=== PATIENT | male | born 1960 | race Caucasian/White ===

== ENCOUNTER → 2019-10-07 13:13 | Outpatient (BNVA) | payer OTHER, SELFPAY | PROVIDERS: Family Provider Family Medicine; PCP Family Medicine; Visit Provider Nurse Practitioner Family | DX: R39.9 Unspecified symptoms and signs involving the genitourinary system (principal); N40.1 Benign prostatic hyperplasia with lower urinary tract symptoms; N13.8 Other obstructive and reflux uropathy; R97.20 Elevated prostate specific antigen [PSA]; C67.2 Malignant neoplasm of lateral wall of bladder | CPT/HCPCS: 81001 ==

== ENCOUNTER → 2019-12-04 10:15 | Outpatient (BNVA) | payer OTHER, SELFPAY | PROVIDERS: Family Provider Family Medicine; PCP Family Medicine; Visit Provider Urology | DX: R97.20 Elevated prostate specific antigen [PSA] (principal); C67.2 Malignant neoplasm of lateral wall of bladder; N40.1 Benign prostatic hyperplasia with lower urinary tract symptoms; N13.8 Other obstructive and reflux uropathy; R35.8 Other polyuria | CPT/HCPCS: 81001 ==

== ENCOUNTER → 2019-12-31 14:27 | Outpatient (BNVA) | payer OTHER, SELFPAY | PROVIDERS: Family Provider Family Medicine; PCP Family Medicine; Referring Provider Registered Nurse; Visit Provider Orthopaedic Surgery | DX: M54.12 Radiculopathy, cervical region (principal) | CPT/HCPCS: 72040 ==

== ENCOUNTER 2020-01-06 15:41 | Emergency (ER) | payer OTHER, SELFPAY ==
[2020-01-06 15:57] VITALS: BP 122/75; PULSE 76; RESP 16; TEMP 36.8; O2SAT 96; BMI 30.2
--- NOTE | 2020-01-06 16:19 | W.ED.EXTPRO ---
HPI - Extremity Problem General: Chief complaint: Extremity Injury, Upper Stated complaint: shoulder pain Time Seen by Provider: 01/06/20 16:19 History of Present Illness: HPI Narrative: Patient is a 59-year-old male who comes to the ED with left shoulder pain. Patient is already being followed by Dr. Garay and he has a scheduled MRI of his cervical spine this coming . Patient is here because he cannot take the pain. Patient has tramadol prescription and he says that it helps a little bit. MD Complaint: joint pain (left shoulder) Onset (ago): month(s) (started about 6 months ago) Pain Consistency: constant Location: upper extremity (left shoulder) Severity scale (1-10): 8 Quality: aching Radiation: none Relieving factors: other (tramadol helps) Exacerbating factors: nothing Associated symptoms: Deny chest pain, fever(s) or rash Review of Systems Const: Denies: fever(s), chills or fatigue Eyes: Denies: change in vision or eye discomfort ENMT: Denies: throat pain, odynophagia, nasal discharge or nasal congestion Card: Denies: chest pain, palpitations, edema, swelling of feet/ankles, dyspnea on exertion or orthopnea Resp: Denies: dyspnea, productive cough or non-productive cough GI: Denies: abdominal pain, nausea, vomiting, diarrhea, constipation or hematochezia : Denies: flank pain, difficulty urinating, dysuria or hematuria Musc: Reports: joint pain (left shoulder); Denies: neck pain, back pain or extremity swelling Skin/Breast: Denies: rash or new lesions Neuro: Denies: headache(s), numbness in extremities or weakness in extremities PFSH ED PFSH: Medical History BPH w urinary obs/LUTS Elevated PSA Malignant neoplasm of lateral wall of bladder Polyuria Surgical History History of bladder surgery bladder biopsy History of carpal tunnel surgery of right wrist Status post tendon repair bicep tendon reattached rt arm Family History Father , at age 82 Cardiac arrest CHF (congestive heart failure) Mother , at age 73 Dementia Social History Smoking and tobacco status: never smoked Alcohol intake: never Adopted: No Caregiver/support person: No Lives independently: No Household members: spouse Marital status: Current occupational status: employed History of recent travel: No Current gender identity: Male Physical Exam Const: COMMON NORMALS: no acute distress, patient oriented x3 and alert GENERAL APPEARANCE: cooperative and comfortable HENMT: COMMON NORMALS: normocephalic HEAD & SCALP: normocephalic MOUTH: Normal oral and palatal mucosa present THROAT: posterior oropharynx normal and uvula midline Eye: COMMON NORMALS: Equal, round and reactive pupils present PUPIL: Yes Equal, round and reactive pupils present Neck/C-Spine: COMMON NORMALS: supple GENERAL: Yes normal visual inspection Resp: COMMON NORMALS: normal respiratory effort, No retractions, No use of accessory muscles and clear to auscultation bilaterally AUSCULTATION: clear to auscultation bilaterally Cardio: COMMON NORMALS: regular rate, regular rhythm, S1 normal heart sound present, S2 normal heart sound present, No gallops present (Cardio), No clicks present (Cardio), No murmurs present (Cardio) and Peripheral pulses 2+ throughout RATE: regular rate RHYTHM: regular rhythm HEART SOUNDS: S1 normal heart sound present and S2 normal heart sound present PERIPHERAL PULSES: Peripheral pulses 2+ throughout GI: COMMON NORMALS: Normal to inspection, nondistended, normoactive bowel sounds present, Soft to palpation, non-tender and no masses PALPATION: Yes Soft to palpation : COMMON NORMALS: Yes no CVA tenderness BLADDER/KIDNEY EXAM: Yes no CVA tenderness Back/Pelvis: COMMON NORMALS: no CVA tenderness Extremity: GENERAL: Yes normal exam except as noted LEFT UPPER EXTREMITY: Yes shoulder joint Left shoulder joint: Yes palpation (tenderness on anterior) Neuro: COMMON NORMALS: patient oriented x3 and moves all extremities SENSORIUM/ORIENTATION: Yes alert Skin: GENERAL SKIN EXAM: dry skin Course Vital Signs: Vital signs: Vital Signs Temperature 97.8 F 01/06/20 16:42 Pulse Rate 72 01/06/20 16:42 Respiratory Rate 16 01/06/20 16:42 Blood Pressure 127/78 01/06/20 16:42 Pulse Oximetry 96 01/06/20 16:42 MDM - Extremity (Nontraumatic) MDM Narrative: Medical decision making narrative: Patient is a 59-year-old male comes to the ED with left shoulder pain. Patient is currently being followed by Dr. Garay and he has a scheduled MRI on for further evaluation of complaint. He comes to the ED with acute left shoulder pain. He was given hydrocodone tablet here in the ED and discharged and told to continue taking his previously prescribed tramadol to help with pain. Patient understood and agreed with plan. Discharge Plan Discharge Patient Disposition: Home, Self-Care Clinical Impression: Left shoulder pain Qualifiers: Chronicity: unspecified Qualified Code(s): M25.512 - Pain in left shoulder Condition: Stable Prescriptions: No Action baclofen 10 mg tablet 10 mg PO DAILY RF: 0 tramadol 50 mg tablet 50 mg PO Q6H PRNRF: 0 glimepiride 4 mg tablet 4 mg PO BID RF: 0 simvastatin 20 mg tablet 20 mg PO DAILY RF: 0 Glyxambi 25-5 mg tablet 1 tab PO QAM RF: 0 tamsulosin 0.4 mg capsule 0.4 mg PO DAILY Qty: 30 RF: 12 Discharge Orders: Discharge Order (Routine); Ordered 01/06/20 Ordered By: Jose L Solitario Referrals: Sandra Cleary DO [Primary Care Provider] - Discharge Diet: Regular Discharge Activity: Increase activity as tolerated Activity Restrictions/Additional Instructions: Contact your PCP and set up an appointment for reevaluation in 7 to 10 days. You can also discuss with your PCP about other pain management options. Continue taking your prescribed tramadol to help with pain. 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
[2020-01-06] MEDS: HYDROcodone-acetaminophen 7.5-325 mg Tablet 1 TAB PO (16:35)
[2020-01-06 16:42] VITALS: BP 127/78; PULSE 72; RESP 16; TEMP 36.6; O2SAT 96
== END 2020-01-06 16:43 | disposition home or self-care (01) ==
PROVIDERS: Emergency Provider Physician Assistant; PCP Family Medicine
DX: M25.512 Pain in left shoulder (principal); Z85.51 Personal history of malignant neoplasm of bladder
CPT/HCPCS: 12345; 99281; 99283

== ENCOUNTER 2020-01-09 10:47 | Outpatient (CLI) | payer OTHER, SELFPAY ==
--- NOTE | 2020-01-09 11:00 | MR_ITS ---
WS: [id number] MRI CERVICAL SPINE NONCONTRAST TECHNIQUE: Sagittal T1, T2 and STIR imaging. Axial T2, gradient, and fiesta imaging. CLINICAL INFORMATION: M25.519 Pain in unspecified shoulder COMPARISON: None. FINDINGS: Straightening of the normal cervical lordosis. Cord signal is normal. Mild disc bulging C3-C4 C4-C5 a nd C5-C6 with small central protrusions.. C2-C3: Mild right and no significant left foraminal narrowing. Spinal canal is patent. C3-C4: Mild disc bulging with a small central protrusion. Mild central canal stenosis with slight con tact of the cervical cord. Mild facet arthropathy. Mild left greater than right bony foraminal narrow ing. C4-C5: Small central disc protrusion. Slight contact of the cervical cord. Mild central canal stenosi s. Mild right greater than left bony foraminal narrowing. Mild facet arthropathy. C5-C6: Left pericentral disc protrusion with contact of the left ventral cervical cord. Mild/moderate central canal stenosis and slight indentation on cervical cord. Severe left and mild right bony fora raman narrowing. Mild facet arthropathy. C6-C7: Mild right and no significant left foraminal narrowing. Mild facet arthropathy. Spinal canal i s patent. C7-T1: No significant disc bulging. Spinal canal and foramen are patent. Visualized brain stem structures: Normal. Prevertebral soft tissues: Normal. MR/MR cervical spin wo con* [id number] IMPRESSION: 1. Straightening of the normal cervical lordosis. Small disc protrusions at C3 -C5. 2. Mild central canal stenosis C3-C4 and C4-C5 with small central disc protrus ions and slight indentation on cervical cord. 3. Left pericentral disc protrusion C5-C6 with mild to moderate central canal stenosis and slight indentation the left ventral cervical cord. Severe left for aminal narrowing impinges the exiting left C6 nerve root. 4. Mild to moderate right C6-C7 bony foraminal narrowing.
== END 2020-01-09 10:48 | disposition home or self-care (01) ==
LOC: RADSHAW 10:51
PROVIDERS: PCP Family Medicine; Visit Provider Orthopaedic Surgery
DX: M25.519 Pain in unspecified shoulder (principal); M48.02 Spinal stenosis, cervical region; M50.220 Other cervical disc displacement, mid-cervical region, unspecified level
CPT/HCPCS: 72141

== ENCOUNTER → 2020-06-03 08:16 | Outpatient (BNVA) | payer OTHER, SELFPAY | PROVIDERS: PCP Family Medicine; Visit Provider Urology | DX: C67.2 Malignant neoplasm of lateral wall of bladder (principal); R97.20 Elevated prostate specific antigen [PSA] | CPT/HCPCS: 81003; 84153 ==

== ENCOUNTER → 2020-12-16 09:21 | Outpatient (BNVA) | payer OTHER, SELFPAY | PROVIDERS: PCP Family Medicine; Visit Provider Urology | DX: R97.20 Elevated prostate specific antigen [PSA] (principal); C67.2 Malignant neoplasm of lateral wall of bladder; N40.1 Benign prostatic hyperplasia with lower urinary tract symptoms; N13.8 Other obstructive and reflux uropathy | CPT/HCPCS: 81003; 84153 ==

== ENCOUNTER → 2021-09-20 12:54 | Outpatient (BNVA) | payer OTHER, SELFPAY | PROVIDERS: PCP Family Medicine; Visit Provider Urology | DX: R97.20 Elevated prostate specific antigen [PSA] (principal); C67.2 Malignant neoplasm of lateral wall of bladder; N40.1 Benign prostatic hyperplasia with lower urinary tract symptoms; N13.8 Other obstructive and reflux uropathy | CPT/HCPCS: 81003; 84153 ==

== ENCOUNTER → 2022-05-31 12:55 | Outpatient (BNVA) | payer OTHER, SELFPAY | PROVIDERS: PCP Family Medicine; Visit Provider Student in an Organized Health Care Education/Training Program | DX: S83.241A Other tear of medial meniscus, current injury, right knee, initial encounter (principal); W10.9XXA Fall (on) (from) unspecified stairs and steps, initial encounter | CPT/HCPCS: 73560; 73565 ==

== ENCOUNTER → 2022-06-10 05:59 | Day surgery (SDC) | payer OTHER, SELFPAY ==
[2022-06-10] VITALS (7 sets, daily range): BP systolic 124–146; BP diastolic 65–80; PULSE 70–77; RESP 12–16; TEMP 36.2–36.3; O2SAT 94–100
[2022-06-10] MEDS: ketorolac 30 mg/mL INJ IVP (06:36)
[2022-06-10] MEDS: sodium chloride 0.9% 1,000 ML 30 ML IV (06:36)
[2022-06-10] MEDS: acetaminophen 1,000 MG/100 ML PIGGYBACK 400 MG IV (06:37)
--- NOTE | 2022-06-10 06:40 | W.PM.OPSUD ---
Surgery/Procedure H&P Update DATE OF PROCEDURE: June 10, 2022 DATE H&P PERFORMED: 05/31/22 CHANGES TO PREVIOUS DOCUMENTATION: None PREOP DIAGNOSIS: Right knee medial meniscus tear PRIMARY INDICATION FOR PROCEDURE: Right knee medial meniscus tear PLANNED PROCEDURE: Operation Date: 06/10/22 07:00 Proposed Procedures p RIGHT KNEE DIAGNOSTIC AND SURGICAL ARHTROSCOPY WITH MEDIAL MENESECTOMY [id number] S83.2491A,S89.90XA(Right) - DO molly Orozco Meniscectomy(Right) - Curry Solitario DO
[2022-06-10 06:44] LABS: Glucose Point of Care 143 mg/dL (70-110)
--- NOTE | 2022-06-10 06:53 | ANES.PREANE2 ---
Pre-Anesthetic Assessment Height/Weight: Height 1.75 m Weight 88.451 kg Temp Pulse Resp BP Pulse Ox O2 Del Method 97.1 F L 77 16 146/80 96 06/10/22 06:20 06/10/22 06:20 06/10/22 06:20 06/10/22 06:20 06/10/22 06:20 06/10/22 06:20 Preop Diagnosis: Right knee medial meniscus tear Operation Date: 06/10/22 07:00 Proposed Procedures p RIGHT KNEE DIAGNOSTIC AND SURGICAL ARHTROSCOPY WITH MEDIAL MENESECTOMY [id number] S83.2491A,S89.90XA(Right) - Curry Sumter, DO s Meniscectomy(Right) - Curry Solitario DO Familial anesthetic complications: None Was Beta Lalit taken within 24 hours: N/A Was Clonidine taken within 24 hours: N/A Last intake: Intake Last Liquid Date 06/09/22 Last Liquid Time 18:00 Last Solid Date 06/09/22 Last Solid Time 17:30 Social No alcohol and No tobacco Exam alert, oriented x 3, clear to auscultation bilaterally and regular rate & rhythm Airway Mallampati: Class II Dentition: other (missing) CV/HEM Hypertension Metabolic Diabetes Mellitus Anesthetic Plan ASA status: 3 Anesthesia: MAC and Regional (specify below) Risk of > 500 ml blood loss (7ml/kg in children): No Medications/Allergies Home Medications Medication Instructions Recorded Confirmed Last Taken Type glimepiride 4 mg tablet 4 mg PO BID 10/07/19 06/10/22 06/09/22 06:00 History simvastatin 20 mg tablet 20 mg PO DAILY 10/07/19 06/10/22 06/09/22 06:00 History multivit,Ca,min-iron 8 mg-folic See Rx Instructions .Route .COMPLEX 06/03/20 06/10/22 06/09/22 06:00 History acid 200 mcg-lycopene 600 mcg tablet (Centrum Men) omega-3 fatty acids 1,000 mg 1,000 mg PO DAILY 06/03/20 06/10/22 06/09/22 06:00 History capsule dapagliflozin 10 mg tablet 10 mg PO DAILY 12/16/20 06/10/22 06/09/22 06:00 History (Farxiga) tamsulosin 0.4 mg capsule See Rx Instructions .Route 10/05/21 06/10/22 06/09/22 06:00 Rx .COMPLEX #30 caps meloxicam 15 mg tablet 15 mg PO DAILY 05/31/22 06/10/22 06/09/22 06:00 History hydrocodone 5 mg-acetaminophen 325 1 tab PO Q6H PRN pain 7 days #28 06/10/22 Unknown Rx mg tablet tabs Allergies Allergy/AdvReac Type Severity Reaction Status Date / Time bee venom protein (honey bee) Allergy ALGY-Swell Verified 06/10/22 06:11 Lip/Tongue/Throat metformin AdvReac ADR-Diarrhe Verified 06/10/22 06:11 a Current Medications Generic Name Dose Route Start Last Admin Trade Name Freq PRN Reason Stop Dose Admin Sodium Chloride 1,000 mls @ 30 mls/hr 06/10/22 06:15 06/10/22 06:36 Sodium Chloride 0.9% IV 06/11/22 06:14 30 mls/hr .Q24H VICENTE Administration PFSH Anesthesia Medical History (Updated 06/04/22 @ 22:05 by Curry Solitario DO) Acute medial meniscus tear of right knee BPH w urinary obs/LUTS Elevated PSA Malignant neoplasm of lateral wall of bladder Polyuria Surgical History History of bladder surgery bladder biopsy History of carpal tunnel surgery of right wrist Status post tendon repair bicep tendon reattached rt arm Family History Father , at age 82 Cardiac arrest CHF (congestive heart failure) Mother , at age 73 Dementia Social History Smoking and tobacco status: never smoked Alcohol intake: never Adopted: No Caregiver/support person: No Lives independently: No Household members: spouse Marital status: Current occupational status: employed History of recent travel: No Current gender identity: Male Data Anesthesia Cardiac Studies: No Data to Display
[2022-06-10] MEDS: ceFAZolin 2,000 MG in sodium chloride 0.9% (plus) 50 ML 100 MG IV (06:59)
--- NOTE | 2022-06-10 07:00 | ANES.PROC ---
Anesthesia Procedures Procedure/Date: 06/10/22 Nerve Block ^: Nerve Block 1: Main Anesthesia: other (mac) Time Out Performed: Yes Consent: requested by attending/covering physician, from patient, risks and benefits reviewed and patient agrees to proceed Nerve block location: adductor canal (R) Anesthesia monitors applied: pulse oximetry, EKG, BP cuff and oxygen Nerve block position: semi sitting Anesthetic Used: ropivicaine 0.5% (30) and with decadron (4) Ultrasound used to: recognize landmarks and visualize and ID femerol nerve Nerve Stimulator Used?: No Interscalene/Femoral BLK: 4 stimuplex 21 g needle used for position and inplane approach, visualize local anesthetic spread and no vascular puncture identified Injection: neg aspiration of heme Patient Tolerated Procedure: well Complications: none Additional Comments: patient educated not to walk or put weight on leg for at least 24 hours or until block resolves.
--- NOTE | 2022-06-10 07:44 | P.OP_ITS ---
Brief Operative Note Date of procedure: 06/10/22 Pre-op diagnosis: Right knee medial meniscus tear Post-op diagnosis: same (Medial and patellofemoral chondromalacia, extensive synovitis) Procedure Done: Right knee diagnostic and surgical arthroscopy with partial medial meniscectomy, medial and patellofemoral chondroplasty, extensive synovectomy of medial lateral and patellofemoral compartments Surgeon: Curry Solitario Estimated blood loss (mL): 1 Complications: None Post-op Plan: Patient taken to PACU in stable condition recovering well. Dressing on in place clean dry and intact. Patient may be weightbearing as tolerated to the right lower extremity. Patient was given appropriate discharge instruction as well as pain medication and aspirin for DVT prophylaxis postoperatively. To follow-up in the office in 2 weeks. Encourage range of motion. 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
--- NOTE | 2022-06-10 07:46 | PM.PACU ---
PACU note Narrative: Patient taken to PACU in stable condition. Patient received a regional block. Dressing clean dry and intact. Patient able to wiggle toes. Distal pulses palpable toes warm well perfused. Compartment soft compressible. Exam: awake Disposition: discharged
--- NOTE | 2022-06-10 07:47 | PM.OP ---
Operative Report Date of procedure: June 10, 2022 Pre-op diagnosis: Preop Diagnosis Right knee medial meniscus tear Post-op diagnosis: Right knee medial meniscus tear Chondromalacia medial and patellofemoral compartments Extensive synovitis Procedure done: Right knee diagnostic and surgical arthroscopy partial medial meniscectomy Right knee diagnostic and surgical arthroscopy medial and patellofemoral compartment chondroplasties Right knee diagnostic and surgical arthroscopy with extensive synovectomy of medial, lateral and patellofemoral compartments Surgeon: Curry Solitario DO Estimated blood loss: 1 cc 16 minutes Complications: None Findings: See operative report narrative Condition: stable Disposition: same day Brief History: Patient is a 61-year-old gentleman history seen and worked up in the outpatient setting physical exam history as well as MRI consistent with right knee medial meniscus tear. He has failed conservative treatment and is failed to respond and continued to have mechanical symptoms. Talked about treatment options as far as nonoperative and operative intervention. Shared Decision making after detailing a risk benefits complication alternatives to surgical nonsurgical treatment options he agrees to proceed with surgical intervention at this time. All questions were answered at this time. Patient like to proceed with right knee diagnostic and surgical arthroscopy with partial medial meniscectomy. Procedure: Patient was seen evaluated in the preoperative holding area. Consent was reviewed with patient. Correct extremity was marked. Once seen evaluated by anesthesia he was then taken back to the operative suite transported on the OR table all bony prominences well-padded patient was appropriately secured to the bed. He underwent anesthesia per the anesthesia department. Nonsterile tourniquet applied to the right thigh. The right lower extremity was then prepped and draped in therapeutic fashion. Received appropriate preoperative antibiotics. Final timeout performed. Esmarch tourniquet was used exsanguinate the right lower extremity to 250 mmHg. Standard 2 portal arthroscopy utilizing vertical incisions were made to perform diagnostic and surgical arthroscopy. Several my inferior lateral portal and established my arthroscope in the patellofemoral pouch. No loose bodies noted extensive synovitis noted. I then subsequently moved into the patellofemoral space. Patient had extensive synovitis and a thickened medial plica. Looked in the medial gutter no loose bodies noted. I then entered the medial compartment and established my medial working portal utilizing a spinal needle outside in technique. I then made a incision established my medial portal and introduced arthroscopic shaver. Performed extensive synovectomy of the medial compartment. Visualized the medial compartment there was found on the femur to have grade1-2 as well as on the tibia grade 1 chondromalacia. Patient was found to have complex tear of the posterior horn the medial meniscus. I then introduced arthroscopic shaver as well as basket forceps to carry out a partial medial meniscectomy to stable meniscal tissue. I then probed the meniscal root which was stable and intact. Used a thermal wand to anneal the meniscal edges to complete my partial medial meniscectomy. I then utilized arthroscopic shaver to perform a medial compartment chondroplasty of the femur to stable articular tissue. Next I evaluated the intercondylar notch which had an intact ACL and PCL. I then visualized the lateral compartment which had only grade I chondromalacia and an intact lateral meniscus with no tear. The lateral gutter was pristine and free of loose bodies. The lateral compartment did have some extensive synovitis and a synovectomy was performed of this compartment. I then reintroduced the arthroscope to the patellofemoral compartment and the trochlea was found to have grade II and III chondromalacia in the patella was found to have grade 1?2 chondromalacia. Utilized the arthroscopic shaver to perform extensive synovectomy as well as a patellofemoral chondroplasty. I did utilize a thermal wand to smooth out the trochlear groove edges after the chondroplasty. This was taken to stable articular tissue. This completed the diagnostic and surgical arthroscopy. Fluid was suctioned from the joint. All instruments were removed from the joint. The portal sites were closed with interrupted nylon suture. Tourniquet was deflated hemostasis satisfactory. I then injected local around the portal sites for pain control. Patient was then dressed with Xeroform 4 x 4's ABD soft roll and an Henok wrap. He was then awakened from anesthesia and taken to PACU in stable condition. Disposition: Patient taken to PACU in stable condition will receive appropriate discharge instructions as well as pain medication DVT prophylaxis prone postoperatively. We will follow-up with me in office in 2 weeks. He can be weightbearing as tolerated to the right lower extremity. All questions been answered at this time. And contact the office for any questions or concerns.
--- NOTE | 2022-06-10 12:38 | ANE.PACU2 ---
Inpatient post-anesthesia follow up: Airway intact: Yes Vital signs: Temperature 97.4 F Pulse Rate 72 Respiratory Rate 14 Blood Pressure 125/65 Pulse Oximetry 100 Oxygen Delivery Me thod Room Air Oxygen Flow Rate Fraction of Inspir ed Oxygen Hydration adequate: Yes Nausea and vomiting: No Pain level: 1 Mental status: Baseline
== END | disposition home or self-care (01) ==
PROVIDERS: PCP Family Medicine; Visit Provider Student in an Organized Health Care Education/Training Program
PROC: (CPT 29870; principal; 2022-06-10 07:00)
PROC: (CPT 27333; 2022-06-10 07:00)
DX: S83.241A Other tear of medial meniscus, current injury, right knee, initial encounter (principal); X58.XXXA Exposure to other specified factors, initial encounter; I10 Essential (primary) hypertension; E11.9 Type 2 diabetes mellitus without complications; N40.1 Benign prostatic hyperplasia with lower urinary tract symptoms; N13.8 Other obstructive and reflux uropathy
CPT/HCPCS: 27333; 36416; 82962; J0131; J0690; J1100; J1885; J2250; J2405; J2704; J2795; J3010; J3490; J7030

== ENCOUNTER 2022-06-23 06:00 | Outpatient (RCR) | payer OTHER, SELFPAY | END 2022-07-23 23:59 | disposition home or self-care (01) | LOC: SPT 06:00 | PROVIDERS: PCP Family Medicine; Visit Provider Student in an Organized Health Care Education/Training Program | DX: M23.321 Other meniscus derangements, posterior horn of medial meniscus, right knee (principal); M25.561 Pain in right knee | CPT/HCPCS: 97110; 97140; 97161 ==

== ENCOUNTER 2022-09-20 09:50 | Outpatient (CLI) | payer OTHER, SELFPAY ==
[2022-09-20 11:17] LABS: Prostate Specific AG Urology 4.07 ng/mL (0-4)
== END 2022-09-20 09:51 | disposition home or self-care (01) ==
LOC: LAB 10:07
PROVIDERS: PCP Family Medicine; Visit Provider Urology
DX: R97.20 Elevated prostate specific antigen [PSA] (principal)
CPT/HCPCS: 81003; 84153

== ENCOUNTER 2023-03-20 18:05 | Emergency (ER) | payer OTHER, SELFPAY ==
[2023-03-20 18:48] VITALS: BP 126/78; PULSE 69; RESP 18; TEMP 36.7; O2SAT 98; BMI 26.6
[2023-03-20 21:13] LABS: Basophils # 0.1 10^3/uL (0.0-0.1); Basophils % 0.7 %; Eosinophils # 0.2 10^3/uL (0.0-0.8); Eosinophils % 2.7 %; Hematocrit 46.6 % (37-53); Lymphocytes % 23.7 %; Mean Corpuscular HGB Conc 33.5 g/dL (30-55); Mean Corpuscular Hemoglobin 29.3 pg (27-33); Mean Corpuscular Volume 87.6 fl (82-101); Mean Platelet Volume 10.5 fL (7.4-10.4); Monocytes # 0.7 10^3/uL (0.2-0.9); Monocytes % 8.5 %; Neutrophils # 5.41 10^3/uL (1.8-7.7); Neutrophils % 63.8 %; Nucleated Red Blood Cells % 0 %; Platelet Count 205 10^3/cmm (157-399); Red Blood Count 5.32 10^6/uL (3.85-5.65); Red Cell Distribution Width 12.5 % (12.1-15.1); White Blood Count 8.48 10^3/uL (3.29-11.43)
[2023-03-20 21:38] LABS: Alanine Aminotransferase 21 U/L (0-41); Albumin Level 4.9 g/dL (3.5-5.2); Alkaline Phosphatase 63 U/L (40-130); Anion Gap 13.8 (5-19); Aspartate Amino Transferase 21 U/L (0-40); Blood Urea Nitrogen 31 mg/dL (8-23); Calcium 9.5 mg/dL (8.5-10.5); Carbon Dioxide 28 mmol/L (22-29); Chloride 100 mmol/L (98-107); Globulin 2.5 g/dL (1.3-4.6); Glomerular Filtration Rate 68.1 mL/min (90-130); Glucose 110 mg/dL (65-115); Lipase 63 U/L (13-60); Osmolality Calculated 293 mOsm/kg (285-295); Potassium 3.8 mmol/L (3.5-5.1); Sodium 138 mmol/L (136-145); Total Bilirubin 0.8 mg/dL (0.15-1.2); Total Protein 7.4 g/dL (6.6-8.7)
--- NOTE | 2023-03-21 00:43 | USR_ITS ---
PROCEDURE INFORMATION: Exam: US Abdomen, Limited; Right Upper Quadrant Exam date and time: 03/21/2023 12:59 AM Age: 62 years old Clinical indication: Abdominal pain; Epigastric; Additional info: Ruq pain TECHNIQUE: Imaging protocol: Real time ultrasound of the abdomen with image documentation. Limited exam focused on the right upper quadrant. COMPARISON: US renal BI with PV bladder 08/01/2017 12:05 PM FINDINGS: Liver: Normal. No masses. Gallbladder: Normal. No gallstones. There is no gallbladder wall thickening. Biliary ducts: Normal. No stones. No dilation. Pancreas: Visualized pancreas is unremarkable. Right kidney: Normal. No mass. No hydronephrosis. US/US gall bladder [id number] IMPRESSION: No acute findings.
[2023-03-21] MEDS: HYDROcodone-acetaminophen 7.5-325 mg Tablet 1 TAB PO (00:49)
--- NOTE | 2023-03-21 00:49 | ED_ITS ---
HPI - Abdominal Pain General: Chief Complaint: Abdominal Pain Stated Complaint: upper abd pain Time Seen by Provider: 03/21/23 00:29 Source: patient Mode of arrival: ambulatory Limitations: no limitations History of Present Illness: 62-year-old male states has been having abdominal pain over the last 3 months states it actually started when he started taking Ozempic. He states pains been epigastric in nature he has been seen at [facility] had a CT scan that was normal he set up for an EGD in April he continued to have some worsening pain in his right upper quadrant and epigastric region. States seems to be worse with eating he is on Carafate and Prilosec. Associated Symptoms: Denies chills, diarrhea, fever(s), nausea and vomiting Review of Systems Const: Denies: fever(s), chills, body aches or change in appetite Eyes: Denies: blurry vision or eye discomfort ENMT: Denies: throat pain or dental pain Card: Denies: chest pain Resp: Denies: dyspnea GI: Reports: abdominal pain; Denies: nausea, vomiting or diarrhea Musc: Denies: neck pain or back pain Skin/Breast: Denies: rash Neuro: Denies: headache(s) All/Imm: Denies: urticaria PFSH ED PFSH: Medical History Acute medial meniscus tear of right knee BPH w urinary obs/LUTS Elevated PSA Malignant neoplasm of lateral wall of bladder Polyuria Surgical History History of bladder surgery bladder biopsy History of carpal tunnel surgery of right wrist Status post tendon repair bicep tendon reattached rt arm Family History Father , at age 82 Cardiac arrest CHF (congestive heart failure) Mother , at age 73 Dementia Social History Smoking and tobacco status: never smoked Alcohol intake: never Substance/Drug Use: unknown Adopted: No Caregiver/support person: No Lives independently: No Household members: spouse Marital status: Current occupational status: employed Current gender identity: Male Physical Exam Const: COMMON NORMALS: no acute distress, patient oriented x3 and healthy appearing HENMT: COMMON NORMALS: normocephalic and atraumatic HEAD & SCALP: normocephalic and atraumatic Neck/C-Spine: COMMON NORMALS: full ROM and supple Chest: COMMONS NORMALS: normal inspection of the chest and normal palpation of entire chest wall Resp: COMMON NORMALS: normal respiratory effort, No retractions, No use of accessory muscles and clear to auscultation bilaterally AUSCULTATION: clear to auscultation bilaterally Cardio: COMMON NORMALS: regular rate, regular rhythm and No murmurs present (Cardio) RATE: regular rate RHYTHM: regular rhythm GI: COMMON NORMALS: Normal to inspection, nondistended, normoactive bowel sounds present, Soft to palpation and no masses PALPATION: Yes Soft to palpation and Yes Tenderness to palpation present (GI) Details: RUQ Extremity: COMMON NORMALS: normal to inspection and full ROM Neuro: COMMON NORMALS: patient oriented x3, moves all extremities and no focal motor deficits Psych: COMMON NORMALS: mental status grossly normal, Normal thought process present and cooperative THOUGHT PROCESS: Normal thought process present Skin: COMMON NORMALS: no rashes or lesions noted and no wounds GENERAL SKIN EXAM: no rashes or lesions noted Course Vital Signs: Vital signs: Vital Signs Temperature 98.0 F 03/20/23 18:48 Pulse Rate 69 03/20/23 18:48 Respiratory Rate 18 03/20/23 18:48 Blood Pressure 126/78 03/20/23 18:48 Pulse Oximetry 98 03/20/23 18:48 Oxygen Delivery Me thod Room Air 03/20/23 18:48 MDM - Abdominal Pain Medical Decision Making Patient presents for abdominal pain has been going on for months his blood work here is all normal ultrasound of the gallbladder is normal is likely gastric in nature. He is to continue his omeprazole along with Carafate I did inform patient he should talk to his PCP about Ozempic as it could be causing some the symptoms he is scheduled for an EGD in April he is to do that as scheduled re turn if worsening he understands agrees to plan. Medical Records I reviewed the patient's medical records. Lab Data I reviewed the patient's lab results. 03/20/23 20:56 03/20/23 20:56 Labs/Radiology: Radiology Impressions Gallbladder Ultrasound 03/21/23 00:43 IMPRESSION: No acute findings. Laboratory Results WBC 8.48 10^3/uL (3.29-11.43) 03/20/23 20:56 RBC 5.32 10^6/uL (3.85-5.65) 03/20/23 20:56 Hgb 15.60 g/dL (11.27-16.99) 03/20/23 20:56 Hct 46.6 % (37-53) 03/20/23 20:56 MCV 87.6 fl (82-101) 03/20/23 20:56 MCH 29.3 pg (27-33) 03/20/23 20:56 MCHC 33.5 g/dL (30-55) 03/20/23 20:56 RDW 12.5 % (12.1-15.1) 03/20/23 20:56 Plt Count 205 10^3/cmm (157-399) 03/20/23 20:56 MPV 10.5 fL (7.4-10.4) H 03/20/23 20:56 Neut % (Auto) 63.8 % 03/20/23 20:56 Lymph % (Auto) 23.7 % 03/20/23 20:56 [place] % (Auto) 8.5 % 03/20/23 20:56 Eos % (Auto) 2.7 % 03/20/23 20:56 Baso % (Auto) 0.7 % 03/20/23 20:56 Neut # (Auto) 5.41 10^3/uL (1.8-7.7) 03/20/23 20:56 Lymph # (Auto) 2.0 10^3/uL (0.8-4.8) 03/20/23 20:56 [place] # (Auto) 0.7 10^3/uL (0.2-0.9) 03/20/23 20:56 Eos # (Auto) 0.2 10^3/uL (0.0-0.8) 03/20/23 20:56 Baso # (Auto) 0.1 10^3/uL (0.0-0.1) 03/20/23 20:56 Nucleated RBC % (auto) 0 % 03/20/23 20:56 Nucleated RBCs # 0.0 /100WBC 03/20/23 20:56 Sodium 138 mmol/L (136-145) 03/20/23 20:56 Potassium 3.8 mmol/L (3.5-5.1) 03/20/23 20:56 Chloride 100 mmol/L (98-107) 03/20/23 20:56 Carbon Dioxide 28 mmol/L (22-29) 03/20/23 20:56 Anion Gap 13.8 (5-19) 03/20/23 20:56 BUN 31 mg/dL (8-23) H 03/20/23 20:56 Creatinine 1.1 mg/dL (0.7-1.2) 03/20/23 20:56 GFR Calculation 68.1 mL/min (90-130) L 03/20/23 20:56 Glucose 110 mg/dL (65-115) 03/20/23 20:56 Calculated Osmolality 293 mOsm/kg (285-295) 03/20/23 20:56 Calcium 9.5 mg/dL (8.5-10.5) 03/20/23 20:56 Total Bilirubin 0.8 mg/dL (0.15-1.2) 03/20/23 20:56 AST 21 U/L (0-40) 03/20/23 20:56 ALT 21 U/L (0-41) 03/20/23 20:56 Alkaline Phosphatase 63 U/L (40-130) 03/20/23 20:56 Total Protein 7.4 g/dL (6.6-8.7) 03/20/23 20:56 Albumin 4.9 g/dL (3.5-5.2) 03/20/23 20:56 Globulin 2.5 g/dL (1.3-4.6) 03/20/23 20:56 Lipase 63 U/L (13-60) H 03/20/23 20:56 Discharge Plan Discharge Patient Disposition: Home Clinical Impression: Abdominal pain Condition: Stable Prescriptions: No Action omega-3 fatty acids 1,000 mg capsule 1,000 mg PO DAILY Centrum Men 8 mg iron- 200 mcg-600 mcg tablet See Rx Instructions .ROUTE .COMPLEX Rx Instructions: 1 tab daily Farxiga 10 mg tablet 10 mg PO DAILY glimepiride 4 mg tablet 4 mg PO BID simvastatin 20 mg tablet 20 mg PO DAILY fenofibrate nanocrystallized [Tricor] 145 mg tablet 145 mg PO DAILY meloxicam 15 mg tablet 15 mg PO DAILY Hold Instructions: Resume on 06/24/22. tamsulosin 0.4 mg capsule See Rx Instructions .ROUTE .COMPLEX Qty: 30 12RF Dose Instruction: TAKE 1 CAPSULE BY MOUTH DAILY Rx Instructions: TAKE 1 CAPSULE BY MOUTH DAILY hydrocodone-acetaminophen 5-325 mg tablet 1 tab PO Q6H PRN (Reason: pain) 7 Days Qty: 28 0RF methylprednisolone [Medrol ([place])] 4 mg tablets,dose pack 4 mg PO DAILY Qty: 21 0RF levofloxacin 500 mg tablet 500 mg PO DAILY 10 Days Qty: 1 0RF Discharge Orders: Discharge ED (Routine); Ordered 03/21/23 Ordered By: Tomasa Burton Referrals: Sandra Cleary DO [Primary Care Provider] - 1-3 days Discharge Diet: Advance as tolerated Discharge Activity: Resume usual activity Patient Instructions: Abdominal Pain (ED) Coding Level of Care Code ED Extender for Aurora Srivastava
[2023-03-21 01:29] VITALS: BP 126/78; PULSE 69; RESP 18; TEMP 36.7; O2SAT 98
== END 2023-03-21 01:30 | disposition home or self-care (01) ==
PROVIDERS: Emergency Provider Emergency Medicine; PCP Family Medicine
DX: R10.13 Epigastric pain (principal); Z85.51 Personal history of malignant neoplasm of bladder
CPT/HCPCS: 36415; 76705; 80053; 83690; 85025; 99284

== ENCOUNTER 2023-09-08 06:00 | Outpatient (CLI) | payer OTHER, SELFPAY | END 2023-09-08 23:59 | disposition home or self-care (01) | LOC: SPT 09-11 08:09 | PROVIDERS: PCP Family Medicine; Visit Provider Physician Assistant | DX: Z46.89 Encounter for fitting and adjustment of other specified devices (principal); S83.8X1D Sprain of other specified parts of right knee, subsequent encounter; X58.XXXD Exposure to other specified factors, subsequent encounter; M25.561 Pain in right knee | CPT/HCPCS: 97760; L1812 ==

== ENCOUNTER → 2023-09-08 07:51 | Outpatient (BNVA) | payer OTHER, SELFPAY | PROVIDERS: PCP Family Medicine; Visit Provider Physician Assistant | DX: S83.8X1A Sprain of other specified parts of right knee, initial encounter; M25.861 Other specified joint disorders, right knee; X58.XXXA Exposure to other specified factors, initial encounter | CPT/HCPCS: 73560; 73565 ==

== ENCOUNTER → 2023-10-13 09:14 | Outpatient (BNVA) | payer OTHER, SELFPAY | PROVIDERS: PCP Family Medicine; Referring Provider Nurse Practitioner Family; Visit Provider Internal Medicine | DX: E11.9 Type 2 diabetes mellitus without complications (principal); E78.2 Mixed hyperlipidemia | CPT/HCPCS: 36415; 80053; 80061; 82044; 83036 ==

== ENCOUNTER 2023-11-14 14:47 | Outpatient (CLI) | payer OTHER, SELFPAY ==
--- NOTE | 2023-11-14 15:15 | MR_ITS ---
WS: [id number] MRI RIGHT KNEE NONCONTRAST TECHNIQUE: Axial PD, coronal PD fat sat, coronal PD, sagittal PD, and sagittal PD fat-sat images obta tavond. CLINICAL INFORMATION: knee pain COMPARISON: Outside MRI 05/19/2022 FINDINGS: Prior postoperative changes medial meniscectomy at the meniscal root is new compared to the outside s tudy. Recommend correlation with surgical history. Horizontal tear involving the posterior horn media l meniscus extending to the periphery and articular surface. This appears progressed compared to the prior examination. Chronic thinning of the lateral meniscus which appears intact. Distal quadriceps a nd patella tendons are intact. Hypertrophic patella. Advanced chondromalacia patella. No subchondral edema. Medial and lateral patellar retinaculum are in tact. Anterior and posterior cruciate ligaments appear intact. Tiny suprapatellar effusion. Medial an d lateral collateral ligaments appear intact. Normal popliteus. Normal popliteal fossa. IMPRESSION: 1. Tear involving the posterior horn medial meniscus extending to the peripheral articular surface a ppears progressed compared to previous. Prior partial medial meniscectomy at the meniscal root. Recom mend correlation with clinical history. 2. Chronic thinning of the lateral meniscus which appears intact. 3. Grade 3-4 chondromalacia patella 4. ACL and PCL appear intact. 5. No other acute findings. Outbridge grading: grade III: partial-thickness cartilage loss with focal ulceration
== END 2023-11-14 14:48 | disposition home or self-care (01) ==
PROVIDERS: PCP Family Medicine; Visit Provider Physician Assistant
DX: S83.8X1A Sprain of other specified parts of right knee, initial encounter (principal); S83.241A Other tear of medial meniscus, current injury, right knee, initial encounter; M22.41 Chondromalacia patellae, right knee; X58.XXXA Exposure to other specified factors, initial encounter
CPT/HCPCS: 73721

== ENCOUNTER → 2023-11-23 08:09 | Outpatient (BNVA) | payer OTHER, SELFPAY | PROVIDERS: PCP Family Medicine; Visit Provider Student in an Organized Health Care Education/Training Program | DX: M17.11 Unilateral primary osteoarthritis, right knee (principal); S83.8X1A Sprain of other specified parts of right knee, initial encounter; S83.241A Other tear of medial meniscus, current injury, right knee, initial encounter; X58.XXXA Exposure to other specified factors, initial encounter | CPT/HCPCS: 73560; 73565 ==

== ENCOUNTER 2023-12-26 09:58 | Outpatient (CLI) | payer MEDICAID, SELFPAY ==
[2023-12-26 10:37] LABS: Basophils % 0.6 %; Eosinophils # 0.1 10^3/uL (0.0-0.8); Eosinophils % 1.2 %; Hematocrit 45.6 % (37-53); Lymphocytes # 1.5 10^3/uL (0.8-4.8); Lymphocytes % 22.4 %; Mean Corpuscular HGB Conc 33.8 g/dL (30-55); Mean Corpuscular Hemoglobin 29.5 pg (27-33); Mean Corpuscular Volume 87.4 fl (82-101); Mean Platelet Volume 10.6 fL (7.4-10.4); Monocytes # 0.6 10^3/uL (0.2-0.9); Monocytes % 8.7 %; Neutrophils # 4.35 10^3/uL (1.8-7.7); Neutrophils % 66.6 %; Nucleated Red Blood Cells % 0 %; Platelet Count 208 10^3/cmm (157-399); Red Blood Count 5.22 10^6/uL (3.85-5.65); Red Cell Distribution Width 12.2 % (12.1-15.1); White Blood Count 6.53 10^3/uL (3.29-11.43)
[2023-12-26 10:50] LABS: Urine Appearance Clear (CLEAR); Urine Color Yellow (Yellow); pH Urine 5 (5-7)
[2023-12-26 10:51] LABS: Add Urine Microscopic? YES; Bilirubin Urine Neg (Negative); Blood Urine Trace (Negative); Glucose Urine UA 4+ (Normal); Ketones Urine Negative (Negative); Leukocyte Esterase Urine Negative (Negative); Nitrate Urine Negative (Negative); Protein Urine Neg (Negative); Urobilinogen Urine Norm (Negative)
[2023-12-26 10:57] LABS: Creatinine Urine, Random 87 mg/dL (39-259); Microalbum Creatinine Ratio Ur 11 mg/dL (0-20); Microalbumin Random Urine 1 ug/dL (0-20)
[2023-12-26 11:06] LABS: Alanine Aminotransferase 14 U/L (0-41); Albumin Level 4.6 g/dL (3.5-5.2); Alkaline Phosphatase 50 U/L (40-130); Anion Gap 14.2 (5-19); Aspartate Amino Transferase 16 U/L (0-40); Blood Urea Nitrogen 31 mg/dL (8-23); Carbon Dioxide 25 mmol/L (22-29); Chloride 102 mmol/L (98-107); Chol HDL Ratio 3.33 mg/dL (1.0-5.00); Cholesterol 133 mg/dL (0-200); Globulin 2.8 g/dL (1.3-4.6); Glomerular Filtration Rate 67.8 mL/min (90-130); Glucose 112 mg/dL (65-115); HDL Cholesterol 40 mg/dL (60-100); LDL Cholesterol Calculated 59 mg/dL (50-129); LDL HDL Ratio 1.48 RATIO (0.00-3.22); Osmolality Calculated 291 mOsm/kg (285-295); Potassium 4.2 mmol/L (3.5-5.1); Sodium 137 mmol/L (136-145); Total Bilirubin 0.6 mg/dL (0.15-1.2); Total Protein 7.4 g/dL (6.6-8.7); Triglycerides 171 mg/dL (0-150)
[2023-12-26 11:21] LABS: Add Urine Culture? No; Bacteria Urine TRACE /hpf; Mucus Urine TRACE /hpf; RBC Urine RARE /hpf (0-2); WBC Urine RARE /hpf (0-5)
[2023-12-26 14:03] LABS: Estmated Average Glucose 163; Hemoglobin A1C 7.3 % (4.0-6.0)
== END 2023-12-26 09:59 | disposition home or self-care (01) ==
LOC: LAB 09:59
PROVIDERS: Internal Medicine; PCP Family Medicine; Visit Provider Student in an Organized Health Care Education/Training Program
DX: Z01.818 Encounter for other preprocedural examination (principal); E11.9 Type 2 diabetes mellitus without complications
CPT/HCPCS: 36415; 80053; 80061; 81001; 82044; 83036; 85025

== ENCOUNTER 2023-12-29 16:15 | Outpatient (CLI) | payer MEDICAID, SELFPAY ==
--- NOTE | 2023-12-29 17:00 | CT_ITS ---
WS: [id number] CT RIGHT knee, noncontrast HISTORY: M17.11 - Unilateral primary osteoarthritis, right knee TECHNIQUE: Protocol for [facility] total knee replacement has been obtained. This includes axial imaging th rough the RIGHT hip, RIGHT knee and RIGHT ankle. DLP: 895.67 mGy.cm COMPARISON: Radiograph 11/23/2023 Pelvis: As visualized no destructive bone lesions. No significant narrowing of the hip joints. Negati ve urinary bladder. No pelvic mass. Inguinal canals are patent bilaterally containing fat only. RIGHT knee: No fractures or destructive bone lesions. Mild tricompartment osteoarthritis. Very small suprapatellar joint effusion. RIGHT ankle: No destructive bone lesions. No soft tissue mass. CT/CT knee RT [facility] [id number] IMPRESSION: CT imaging provided for [facility] robotic total knee replacement.
== END 2023-12-29 16:16 | disposition home or self-care (01) ==
PROVIDERS: PCP Family Medicine; Visit Provider Student in an Organized Health Care Education/Training Program
DX: M17.11 Unilateral primary osteoarthritis, right knee (principal)
CPT/HCPCS: 73700

== ENCOUNTER → 2024-01-02 08:17 | Outpatient (BNVA) | payer OTHER, SELFPAY | PROVIDERS: PCP Family Medicine; Visit Provider Family Medicine | DX: Z01.818 Encounter for other preprocedural examination (principal) | CPT/HCPCS: 81003; 93005 ==

== ENCOUNTER 2024-01-08 09:58 | Observation (INO) | payer MEDICAID, SELFPAY ==
[2024-01-08] VITALS (23 sets, daily range): BP systolic 101–135; BP diastolic 60–80; PULSE 69–92; RESP 10–20; TEMP 35.9–36.5; O2SAT 95–100; BMI 26.9
[2024-01-08 06:24] LABS: Glucose Point of Care 146 mg/dL (70-110)
[2024-01-08] MEDS: ketorolac 30 mg/mL INJ IVP (06:33)
[2024-01-08] MEDS: acetaminophen 1,000 MG/100 ML PIGGYBACK 400 MG IV ×3 (06:33→21:54)
[2024-01-08] MEDS: lactated ringers 500 ML IV (06:35)
[2024-01-08 06:39] LABS: Basophils % 0.7 %; Eosinophils # 0.1 10^3/uL (0.0-0.8); Eosinophils % 1.8 %; Hematocrit 47.3 % (37-53); Lymphocytes # 1.7 10^3/uL (0.8-4.8); Mean Corpuscular HGB Conc 33.6 g/dL (30-55); Mean Corpuscular Hemoglobin 29.7 pg (27-33); Mean Corpuscular Volume 88.2 fl (82-101); Mean Platelet Volume 10.4 fL (7.4-10.4); Monocytes # 0.5 10^3/uL (0.2-0.9); Monocytes % 8.5 %; Neutrophils % 60.5 %; Nucleated Red Blood Cells % 0 %; Platelet Count 178 10^3/cmm (157-399); Red Blood Count 5.36 10^6/uL (3.85-5.65); Red Cell Distribution Width 12.2 % (12.1-15.1); White Blood Count 6.11 10^3/uL (3.29-11.43)
--- NOTE | 2024-01-08 06:39 | W.PM.OPSFHP ---
Same Day Surgery H&P Indication for Procedure/HPI DATE OF PROCEDURE: January 08, 2024 CHIEF COMPLAINT/INDICATIONFOR SURGICAL PROCEDURE: Right knee degenerative joint disease PREOP DIAGNOSIS: Right knee degenerative joint disease PLANNED PROCEDURE: Operation Date: 01/08/24 07:00 Proposed Procedures p [facility] Robot Total Knee Arthroplasty(Right) - Curry Solitario DO Medications/Allergies* Home Medications Medication Instructions Recorded Confirmed Type multivit,Ca,min-iron 8 mg-folic 1 tab PO DAILY 06/03/20 01/05/24 History acid 200 mcg-lycopene 600 mcg tablet (Centrum Men) dapagliflozin propanediol 10 mg 10 mg PO DAILY 12/16/20 01/05/24 History tablet (Farxiga) fenofibrate nanocrystallized 145 145 mg PO DAILY 09/20/22 01/05/24 History mg tablet (Tricor) simvastatin 20 mg tablet 40 mg PO DAILY 09/08/23 01/05/24 History tamsulosin 0.4 mg capsule 0.4 mg PO DAILY 09/08/23 01/05/24 History Allergies/Adverse Reactions Allergy/AdvReac Type Severity Reaction Status Date / Time bee venom protein (honey bee) Allergy ALGY-Swell Verified 01/02/24 08:17 Lip/Tongue/Throat semaglutide [From Ozempic] Allergy ADR-Faintin Verified 01/05/24 09:40 g metformin AdvReac ADR-Diarrhe Verified 01/02/24 08:17 a Current Medications: Generic Name Dose Route Start Last Admin Trade Name Freq PRN Reason Stop Dose Admin Lactated Ringer's 500 mls @ 500 mls/hr 01/08/24 05:43 01/08/24 06:35 Lactated Ringers IV 01/08/24 06:42 500 mls/hr .Q1H ONE Administration Pertinent History/Comorbid Conditions* Medical History (Updated 11/17/23 @ 11:48 by CAMILA Mcdonald) Acute medial meniscus tear of right knee Polyuria Elevated PSA BPH w urinary obs/LUTS Malignant neoplasm of lateral wall of bladder Surgical History (Updated 10/07/19 @ 16:18 by Carmelita Stokes APRN) Status post tendon repair bicep tendon reattached rt arm History of carpal tunnel surgery of right wrist History of bladder surgery bladder biopsy Family History (Updated 10/03/19 @ 17:13 by Yu Kidd LPN) Father, at age 82 Mother, at age 73 Congestive heart failure (CHF) Father Cardiac arrest Father Dementia Mother Social History Smoking and tobacco/nicotine status: never used tobacco/nicotine Alcohol intake: never Substance/Drug Use: unknown Adopted: No Caregiver/support person: No Lives independently: No Household members: spouse Marital status: Current occupational status: employed Current gender identity: Male Pertinent Exam Findings alert, oriented x 3, operative site marked and procedure specific exam findings Please refer to detailed orthopedic examination on 11/23/2023 detailed below: Right Knee Exam: ROM 5 to greater than 120 degrees Patellar crepitus with ROM Medial joint line tenderness to palpation Lateral joint line tenderness to palpation Mild joint effusion positive Tatianna's with pain but no palpable click Negative Jonnie's 10 degrees of Varus malalignment, correctable on exam Stable Varus and Valgus stress Gross motor sensory intact Recommendations Surgery/Procedure today Other Plans: Plan to proceed to the OR today for right total knee arthroplasty?[facility] robotic assisted he is clear the preoperative clearance process his A1c is below preoperative goal his last injection was 09/08/2023 at this point in time he is over 90 days out from his injection he is failed all conservative treatment options at this point time elects proceed with surgical intervention. Patient understands incidence procedure risk benefits complication alternatives of surgery and through shared decision make elects proceed with surgical invention all questions answered at this time. Elects proceed with surgery today. Coding Level of Care Code Acute Code for Aurora Fwjazmin
[2024-01-08 06:55] LABS: Blood Urea Nitrogen 22 mg/dL (8-23); Calcium 9.6 mg/dL (8.5-10.5); Carbon Dioxide 27 mmol/L (22-29); Chloride 102 mmol/L (98-107); Creatinine Clr Calc Pharmacy 90.8093; Glomerular Filtration Rate 85.5 mL/min (90-130); Glucose 146 mg/dL (65-115); Osmolality Calculated 294 mOsm/kg (285-295); Sodium 139 mmol/L (136-145)
[2024-01-08] MEDS: ceFAZolin 2,000 MG in sodium chloride 0.9% (plus) 50 ML 100 MG IV ×3 (07:07→23:36)
--- NOTE | 2024-01-08 07:08 | ANES.PREANE2 ---
Pre-Anesthetic Assessment Height/Weight: Height 1.75 m Weight 82.554 kg Temp Pulse Resp BP Pulse Ox O2 Del Method 96.7 F L 73 18 112/79 98 Room Air 01/08/24 06:28 01/08/24 06:28 01/08/24 06:28 01/08/24 06:28 01/08/24 06:28 01/08/24 06:28 Preop Diagnosis: Right knee degenerative joint disease Operation Date: 01/08/24 07:00 Proposed Procedures p [facility] Robot Total Knee Arthroplasty(Right) - Curry Solitario DO Familial anesthetic complications: none Was Beta Lalit taken within 24 hours: N/A Was Clonidine taken within 24 hours: N/A Last intake: Intake Last Liquid Date 01/07/24 Last Liquid Time 20:00 Last Solid Date 01/07/24 Last Solid Time 18:00 Social No alcohol and No tobacco Exam alert, oriented x 3, clear to auscultation bilaterally and regular rate & rhythm Airway Mallampati: Class II Dentition: full bladder cancer Metabolic Diabetes Mellitus and Hyperlipidemia Anesthetic Plan ASA status: 2 Anesthesia: Regional (specify below) Other: spinal + adductor Risk of > 500 ml blood loss (7ml/kg in children): Yes, adequate IV access and fluids planned Medications/Allergies Home Medications Medication Instructions Recorded Confirmed Last Taken Type multivit,Ca,min-iron 8 mg-folic 1 tab PO DAILY 06/03/20 01/05/24 1 Week Ago History acid 200 mcg-lycopene 600 mcg ~12/29/23 tablet (Centrum Men) dapagliflozin propanediol 10 mg 10 mg PO DAILY 12/16/20 01/05/24 01/03/24 History tablet (Farxiga) fenofibrate nanocrystallized 145 145 mg PO DAILY 09/20/22 01/05/24 01/05/24 History mg tablet (Tricor) right economy knee brace #1 ea 09/08/23 12/15/23 Unknown Rx simvastatin 20 mg tablet 40 mg PO DAILY 09/08/23 01/05/24 01/05/24 History tamsulosin 0.4 mg capsule 0.4 mg PO DAILY 09/08/23 01/05/24 01/05/24 History sitagliptin phosphate 100 mg 100 mg PO DAILY #90 tabs 10/13/23 01/05/24 01/03/24 Rx tablet (Januvia) Allergies Allergy/AdvReac Type Severity Reaction Status Date / Time bee venom protein (honey bee) Allergy ALGY-Swell Verified 01/02/24 08:17 Lip/Tongue/Throat semaglutide [From Ozempic] Allergy ADR-Faintin Verified 01/05/24 09:40 g metformin AdvReac ADR-Diarrhe Verified 01/02/24 08:17 a [facility] Anesthesia Medical History (Updated 01/05/24 @ 09:03 by Dotty Kaye RN) Acute medial meniscus tear of right knee Polyuria Elevated PSA BPH w urinary obs/LUTS Malignant neoplasm of lateral wall of bladder Surgical History Status post tendon repair bicep tendon reattached rt arm History of carpal tunnel surgery of right wrist History of bladder surgery bladder biopsy Family History Father , at age 82 Cardiac arrest Congestive heart failure (CHF) Mother , at age 73 Dementia Social History Smoking and tobacco/nicotine status: never used tobacco/nicotine Alcohol intake: never Substance/Drug Use: unknown Adopted: No Caregiver/support person: No Lives independently: No Household members: spouse Marital status: Current occupational status: employed Current gender identity: Male Data Anesthesia 01/08/24 06:15 01/08/24 06:15 Short CBC 01/08/24 Range/Units 06:15 WBC 6.11 (3.29-11.43) 10^3/uL Hgb 15.90 (11.27-16.99) g/dL Hct 47.3 (37-53) % MCV 88.2 (82-101) fl Plt Count 178 (157-399) 10^3/cmm Neut % (Auto) 60.5 % Neut # (Auto) 3.70 (1.8-7.7) 10^3/uL BMP 01/08/24 06:15 Sodium 139 Potassium 4.0 Chloride 102 Carbon Dioxide 27 BUN 22 Creatinine 0.9 Glucose 146 H Calcium 9.6 Cardiac Studies: No Data to Display
[2024-01-08] MEDS: sodium chloride 0.9% 1,000 ML 30 ML IV (07:09)
--- NOTE | 2024-01-08 07:09 | ANES.PROC ---
Anesthesia Procedures Procedure/Date: 01/08/24 Nerve Block ^: Nerve Block 1: Main Anesthesia: spinal anesthesia block Time Out Performed: Yes Consent: requested by attending/covering physician, from patient, from other, risks and benefits reviewed and patient agrees to proceed Nerve block location: adductor canal (R) Anesthesia monitors applied: pulse oximetry, EKG and BP cuff Nerve block position: supine Anesthetic Used: ropivicaine 0.5% (30 ml) and with decadron (4 mg) Ultrasound used to: recognize landmarks and visualize and ID femerol nerve Nerve Stimulator Used?: No Interscalene/Femoral BLK: 4 stimuplex 21 g needle used for position and inplane approach, visualize local anesthetic spread and no vascular puncture identified Injection: neg aspiration of heme Patient Tolerated Procedure: well Complications: none
[2024-01-08] MEDS: tranexamic acid 1,000 mg/10mL SDV 1000 MG IV (07:38)
[2024-01-08] MEDS: ketorolac 30 mg/mL INJ XX (08:36)
[2024-01-08] MEDS: EPINEPHrine 1 mg/mL INJ XX (08:36)
[2024-01-08] MEDS: tranexamic acid 1,000 mg/10mL SDV 1000 MG XX (08:36)
[2024-01-08] MEDS: vancomycin 1,000 MG SDV 1000 MG XX (08:36)
[2024-01-08] MEDS: ROPivacaine 0.2% Premix 100 mL 200 MG INTRA-ARTI (08:36)
--- NOTE | 2024-01-08 09:52 | XRR_ITS ---
PROCEDURE INFORMATION: Exam: XR Right Knee Exam date and time: 01/08/2024 9:58 AM Age: 63 years old Clinical indication: Device placement; Joint replacement hardware; Prior surgery; Surgery date: Post-operative (0-2 days); Surgery type: Right knee; Additional info: Postop R tka TECHNIQUE: Imaging protocol: Radiologic exam of the right knee. Views: 3 views. COMPARISON: CT knee RT [facility] [id number] 12/29/2023 4:32 PM FINDINGS: Bones/joints: Satisfactory immediate postoperative appearance of right total knee arthroplasty. Soft tissues: Postsurgical gas. XR/XR knee RT 3V* [id number] IMPRESSION: Satisfactory postoperative appearance.
--- NOTE | 2024-01-08 09:54 | P.OP_ITS ---
Operative Report Date of procedure: January 08, 2024 Surgeon: Curry Solitario DO Straight Pin Making Machine Operator: Jose L Solitario PA-C: PA was necessary for assistance in this case with leg positioning retraction and protection of neurovascular structures as well as assistance in implantation wound closure and dressing application. Procedure: Preoperative diagnosis: Right knee degenerative joint disease Post-op diagnosis: Same Procedure done: Right total knee arthroplasty, cemented?robotic assisted Montez Implants: Owen triathlon size 6 femur CR cemented?Right [place] triathlon size? 5 tibia universal baseplate cemented [place] triathlon symmetric patella size 33 mm Owen triathlon polyethylene 10mm Surgeon: Curry Solitario DO Estimated blood?loss: 25 mL Tourniquet 62minutes IV fluids: 1000 mL Urine output: 700 mL Complications: None Condition: stable Disposition: floor Brief History: Patient is a 63-year-old male with chronic?Right knee degenerative joint disea se.? Patient has been worked up in the outpatient setting in the orthopedic office at this point time through shared decision making given? [id number] arthritis as well as failed conservative treatment, and pt would?like to proceed with a?Right total knee arthroplasty.? Through shared decision making elected to proceed with surgical intervention for?Right total knee arthroplasty.? We talked about continued conservative treatment and surgical intervention as far as the risk benefits complications alternatives surgical and nonsurgical treatment options.? At this point time understanding patient risks with surgery he agrees to proceed with surgical intervention.? Once again? risk with surgery include but are not?limited to make it better make it worse blood clot, heart attack, stroke, on the table, infection, injury to nerves or vessels, persistent pain, arthrofibrosis, implant failure.? Understanding these risks patient agrees to proceed with surgical intervention consent was obtained in the office.? All questions answered. Procedure: Patient was seen and evaluated in the preoperative holding area.? Consent was reviewed and signed with patient with plan for?Right total knee arthroplasty.? All questions answered.? Correct extremity marked.? Patient seen and evaluated by the anesthesia department and once cleared for surgery was taken back to the operative suite.? Patient was placed into a supine position on the OR table.? All bony prominences were well-padded.? Patient was appropriately secured to the bed.? Patient underwent anesthesia per the anesthesia department.? Patient received spinal anesthesia and? Murillo catheter was placed.? A nonsterile tourniquet was applied to the?Right thigh.? At this point in time a final timeout performed.? Patient received appropriate preoperative antibiotics and TXA. Next the?Right?lower extremity was then prepped and draped in standard orthopedic fashion. Esmarch tourniquet was used exsanguinate the?Right?lower extremity.? Tourniquet was insufflated to 250 mmHg. A standard anterior incision was made over midline of the knee.? Sharp scalpel excision through skin and subcutaneous tissue full-thickness skin flaps were made.? Fascia was elevated off of the extensor retinaculum was stable with medial parapatellar arthrotomy was then made.? The performed standard sequential releases..? Immediately on entry into the joint patient was found to have severe eburnated bone and tricompartmental arthritic changes noted.? With significant osteophyte formation.? Next the the patella was then stuffed and the knee was then flexed.?? Fadumo was placed superiorly around the anterior aspect of the femur this was freed of synovium and I subsequently then placed by 2 femur pins to establish my femur arrays for the Montez robot.? These were then placed bicortically and? femur array was then appropriately secured with appropriate visualization.? Next attention was turned towards the tibial rays.? These were then drilled seq uentially bicortically in parallel fashion and intraincisional.? I then placed my guide as well as my tibial array on in place.? This was appropriately secured and had excellent visualization with the Montez robot.? Next the tibial checkpoint as well as femur checkpoint were then placed.? At this point time I then subsequently established my head center as well as my medial?lateral malleoli as well as my checkpoints.? Next utilizing standard Montez technology I then mapped out the appropriate points and confirmation points around the femur as well as the tibia in standard fashion.? Once this was then done I then removed all osteophytes in preparation for dynamic testing.? All osteophytes were removed as well as I removed the ACL and the PCL was excised due to its significant tearing and degeneration noted.? At this point time the knee was brought into full extension and we performed our standard evaluation of our gap balancing stressing his?ligaments and extension as well as flexion appr opriate adjustments were made to have appropriate gap balancing in both flexion and extension.? This plan for final counts.? We get a preoperative plan evaluating our implants which was a size 6 femur and a size 5 tibia.? Next we brought in the Montez robot and sequentially made our femur cuts.? All excess bony cuts were then removed.? Finally we made our tibial cut.? Once this was done a standard PCL retractor was then placed into this position I excised the medial and?lateral meniscus.? The tibial cut was then subsequently removed all excess bony debris was removed.? I then utilized a?lamina shell press operator and remove the posterior osteophytes.? At this point time sized the tibia and confirmed this was a size 5.? I utilized our blunt probe to establish rotation of tibial implant.? Once this was done I then placed my tibia size 5 trial in appropriate position and then subsequently placed tibial pins to hold this into place placed a size 10 mm poly as well as a size 6 femur which was appropriately impacted in place knee was then subsequently brought into extension. Trials were then assessed,? this was stable with varus valgus stress in extension as well as had symmetrical translation when brought into flexion demonstrating symmetrical gaps. I had excellent balance gaps in flexion and extension with varus and valgus stresses.? At this point I was satisfied with these implants these were then verified and opened on the back table size 5 tibia, size 6 femur,? size 10 mm polythickness.? We did confirm appropriate gap balancing and stresses as well as alignment utilizing? Montez and were satisfied with this plan.? ?At this point time with my trials in place I then towel clip the patella everted this made appropriate measurements subsequently utilizing freehand technique performed by patellar resurfacing this was confirmed to be appropriate resection and subsequently sized to be a 33 mm symmetric.? My drill peg guides were then clamped and appropriate position and appropriate position in the patella for appropriate tracking and parallel with the joint.? Pegs were drilled trial implant was placed and the knee was then subsequently ranged and found to have excellent patellar tracking.? Femur pegs were then drilled.? Satisfied with our tibial placement rotation I then utilized the keel punch and prepped the tibia.? At this point time all of our trial implants were removed.? All checkpoints as well as guidepins and arrays were removed and appropriate counts made.? The wound bed? was thoroughly irrigated and dried and prepped for cementation.? Cement was mixed on the back table.? Once cement was ready this was then covered onto the tibia and the tibial baseplate was then impacted and all excess cement was removed.? Next the polyethylene was then impacted into place on the tibial baseplate.? Next cement was placed onto the femur as well as under the femur implants and impacted in to place and all excess cement was extruded and removed.? Knee was taken into full extension? to clear all excess cement was removed.? Warm saline was placed over the joint.? I then towel clip patella and dried for cementation. cemented the patella into place.? This was all clamped and the cement was allowed to cure.? Thorough irrigation performed with pulse?lavage.? I then placed my periarticular injection while the cement was curing.? Once cured the knee was taken through range of motion and had excellent stability and gaps were balanced in flexion and extension.? Tourniquet was then deflated. hemostasis satisfactory with electrocautery.? Vancomycin powder was placed in the wound bed for antibiotic prophylaxis. next I then subsequently closed the capsule with Ethibond suture as well as a running strata fix suture.? Knee was then taken through range of motion 20 times.? Next the skin was then closed in?layered fashion of running stratifix sutures of deep and subcutenous tissue and skin.? ?closed in flexion and Prineo glue was then placed over the incision this allowed to cure.? Incision was covered with gab, with ABDs soft roll and Henok wrap.? Patient was then awakened from anesthesia and taken to PACU in stable condition. Disposition: Patient taken to PACU in stable condition will be admitted to the floor for pain control PT/OT weight-bear as tolerated?Right?lower extremity dressing changes as needed, DVT prophylaxis. Pain control. Patient will receive appropriate postoperative antibiotics. patient will be seen today by the internal medicine team for medical management.? Patient will follow up with the office in 2 weeks.? Patient understands agrees with current plan.? All questions answered.
--- NOTE | 2024-01-08 09:54 | W.PM.BPON ---
Date of Procedure: [January 08, 2024] Surgeon: [Dr. Solitario DO] [place] Brushing Machine Operator(s): [Jose L Solitario PA-C] Procedure(s) performed: [Right total knee arthroplasty with Montez robotic assist] Findings of the procedure(s): [Right knee degenerative joint disease, tricompartmental osteoarthritis] Estimated blood loss: [25 mL] Specimen(s) removed: [N/A] Post-operative diagnosis: [Right knee degenerative joint disease]
--- NOTE | 2024-01-08 10:00 | PM.PACU ---
PACU note Narrative: Patient is a 63-year-old male that just underwent a right total knee arthroplasty. Pt transferred to PACU in stable condition. Dressing is dry. pt is awake and alert. Distal pulses are palpable toes are warm and well-perfused. Cap refill is normal and under 2 seconds. Unable to assess motor and sensation to lower leg due to residual spinal anesthetic. pain is controlled. Exam: awake Disposition: admitted
--- NOTE | 2024-01-08 10:07 | P.HP_ITS ---
Providers/Chief Complaint 2 Admitting Physician: Curry Solitario DO Primary Care Provider: Sandra Cleary DO Chief Complaint: M17.11, S83.501A History of Present Illness Mickey Francisco is a 63 year old male with history of diabetes, hyperlipidemia, hypertrophy and recent concern for prostate cancer awaiting biopsy who presents for a right total knee arthroplasty. Surgery went well, with spinal and estimated blood loss of 25. Patient reports pain is currently under control, and he has no particular concerns. Review of Systems 2 General: Reports: 10 or more systems reviewed and unremarkable except in HPI and below Medications/Allergies Home Medications Medication Instructions Recorded Confirmed Last Taken Type multivit,Ca,min-iron 8 mg-folic 1 tab PO DAILY 06/03/20 01/05/24 1 Week Ago History acid 200 mcg-lycopene 600 mcg ~12/29/23 tablet (Centrum Men) dapagliflozin propanediol 10 mg 10 mg PO DAILY 12/16/20 01/05/24 01/03/24 History tablet (Farxiga) fenofibrate nanocrystallized 145 145 mg PO DAILY 09/20/22 01/05/24 01/05/24 History mg tablet (Tricor) right economy knee brace #1 ea 09/08/23 12/15/23 Unknown Rx simvastatin 20 mg tablet 40 mg PO DAILY 09/08/23 01/05/24 01/05/24 History tamsulosin 0.4 mg capsule 0.4 mg PO DAILY 09/08/23 01/05/24 01/05/24 History sitagliptin phosphate 100 mg 100 mg PO DAILY #90 tabs 10/13/23 01/05/24 01/03/24 Rx tablet (Januvia) Allergies Allergy/AdvReac Type Severity Reaction Status Date / Time bee venom protein (honey bee) Allergy ALGY-Swell Verified 01/02/24 08:17 Lip/Tongue/Throat semaglutide [From Ozempic] Allergy ADR-Faintin Verified 01/05/24 09:40 g metformin AdvReac ADR-Diarrhe Verified 01/02/24 08:17 a PFSH Acute 2 PFSH: Medical History (Updated 01/08/24 @ 10:09 by Aaron Figueroa MD) Prostatic hypertrophy Hyperlipidemia Diabetes mellitus, type II Acute medial meniscus tear of right knee Polyuria Elevated PSA BPH w urinary obs/LUTS Malignant neoplasm of lateral wall of bladder Surgical History Status post tendon repair bicep tendon reattached rt arm History of carpal tunnel surgery of right wrist History of bladder surgery bladder biopsy Family History Father , at age 82 Cardiac arrest Congestive heart failure (CHF) Mother , at age 73 Dementia Social History Smoking and tobacco/nicotine status: never used tobacco/nicotine Alcohol intake: never Substance/Drug Use: unknown Adopted: No Caregiver/support person: No Lives independently: No Household members: spouse Marital status: Current occupational status: employed Current gender identity: Male Vitals/I&O/Wt Last Vital Signs Temp 97 F L 01/08/24 09:52 Pulse 89 01/08/24 10:00 Resp 14 01/08/24 10:00 BP 101/62 01/08/24 10:00 Pulse Ox 96 01/08/24 10:00 O2 Del Method Room Air 01/08/24 10:00 01/07/24 01/08/24 01/08/24 22:59 06:59 14:59 Intake Total 100 / 100 1550 / 1550 Output Total 725 / 725 Balance 100 / 100 825 / 825 Weight last 48 hrs Weight 82.554 kg Physical Exam 2 Narrative: General exam is a white male, no distress, conversant HEENT: Atraumatic and normocephalic Neck is supple Cardiovascular regular rate and rhythm without murmur Lungs clear Abdomen is soft. No obvious organomegaly. Positive bowel sounds exam was deferred Extremities no cyanosis clubbing or edema, dressing right lower extremity Skin without obvious rash Urinary Catheter Management: Murillo: Cath Placed During This Visit: yes Urinary Catheter Date of Insertion: 01/08/24 Urinary Catheter Time of Insertion: 07:30 Data 01/08/24 06:15 01/08/24 06:15 A&P Assessment and plan (1) Arthritis of knee, right: Directly postoperative total knee arthroplasty on the right, doing well without complications Pain control per Ortho Eliquis will be used for DVT prophylaxis Laboratory in the morning consisting of CBC and BMP to look for postoperative acute blood loss anemia (2) Diabetes mellitus, type II: Consistent carb diet Sliding scale insulin May continue current medications if on formulary Plan Other medical problems as outlined by past medical history Attestations 2 Medical Necessity Statement*: As per primary Diagnoses Arthritis of knee, right M17.11 Diabetes mellitus, type II E11.9 Time Spent (min) 38
--- NOTE | 2024-01-08 10:50 | ANE.PACU2 ---
Inpatient post-anesthesia follow up: Airway intact: Yes Vital signs: Temperature 97.7 F Pulse Rate 88 Respiratory Rate 18 Blood Pressure 103/68 Pulse Oximetry 100 Oxygen Delivery Me thod Room Air Oxygen Flow Rate Fraction of Inspir ed Oxygen Hydration adequate: Yes Nausea and vomiting: No Pain level: 1 Mental status: Baseline
[2024-01-08 11:45] LABS: Glucose Point of Care 222 mg/dL (70-110)
[2024-01-08] MEDS: lactated ringers 1,000 ML 100 ML IV ×2 (12:17→23:37)
[2024-01-08] MEDS: chlorhexidine gluconate 0.12% Btl 473 mL 30 ML MUCOUS MEM ×3 (12:18→21:52)
[2024-01-08] MEDS: insulin lispro 100 unit/1 mL SUBCUT ×3 (12:52→21:53)
[2024-01-08] MEDS: tranexamic acid 1,000 MG/100 ML PREMIX 600 MG IV (15:10)
[2024-01-08] MEDS: ketorolac 30 mg/mL INJ 15 MG IVP (15:12)
[2024-01-08] MEDS: TRAMadol 50 mg Tablet PO (16:15)
[2024-01-08 16:47] LABS: Glucose Point of Care 293 mg/dL (70-110)
[2024-01-08] MEDS: calcium carb-vit d 600mg/400unit 1 Tablet 1 EACH PO (17:46)
[2024-01-08] MEDS: mupirocin oint 22 gm 1 APPLIC NASAL (17:46)
[2024-01-08] MEDS: sennosides-docusate Tablet 2 TAB PO (17:47)
[2024-01-08] MEDS: docusate sodium 100 mg Capsule PO (17:47)
[2024-01-08] MEDS: iron polysaccharide complex 150 mg Capsule PO (17:48)
[2024-01-08] MEDS: oxyCODONE 5 mg IR Tab/Cap PO ×2 (17:54→22:07)
[2024-01-08 20:47] LABS: Glucose Point of Care 244 mg/dL (70-110)
[2024-01-09] VITALS (7 sets, daily range): BP systolic 119–130; BP diastolic 74–78; PULSE 61–73; RESP 16–20; TEMP 36.4–36.5; O2SAT 95–98
[2024-01-09] MEDS: LORazepam 0.5 mg Tablet PO (01:49)
[2024-01-09] MEDS: oxyCODONE 5 mg IR Tab/Cap PO ×3 (02:39→11:50)
[2024-01-09 05:02] LABS: Basophils % 0.2 %; Eosinophils # 0.1 10^3/uL (0.0-0.8); Eosinophils % 0.4 %; Hematocrit 40.7 % (37-53); Lymphocytes # 0.9 10^3/uL (0.8-4.8); Mean Corpuscular HGB Conc 33.9 g/dL (30-55); Mean Corpuscular Hemoglobin 29.9 pg (27-33); Mean Corpuscular Volume 88.1 fl (82-101); Mean Platelet Volume 10.4 fL (7.4-10.4); Monocytes # 0.8 10^3/uL (0.2-0.9); Monocytes % 7.4 %; Neutrophils # 9.43 10^3/uL (1.8-7.7); Neutrophils % 83.3 %; Nucleated Red Blood Cells % 0 %; Platelet Count 172 10^3/cmm (157-399); Red Blood Count 4.62 10^6/uL (3.85-5.65); Red Cell Distribution Width 12.1 % (12.1-15.1); White Blood Count 11.32 10^3/uL (3.29-11.43)
[2024-01-09 05:21] LABS: Anion Gap 14.8 (5-19); Blood Urea Nitrogen 20 mg/dL (8-23); Calcium 8.9 mg/dL (8.5-10.5); Carbon Dioxide 25 mmol/L (22-29); Chloride 103 mmol/L (98-107); Creatinine Clr Calc Pharmacy 83.9518; Glomerular Filtration Rate 75.7 mL/min (90-130); Glucose 165 mg/dL (65-115); Osmolality Calculated 294 mOsm/kg (285-295); Potassium 3.8 mmol/L (3.5-5.1); Sodium 139 mmol/L (136-145)
[2024-01-09] MEDS: acetaminophen 1,000 MG/100 ML PIGGYBACK 400 MG IV (05:53)
[2024-01-09 06:20] LABS: Glucose Point of Care 167 mg/dL (70-110)
[2024-01-09] MEDS: ceFAZolin 2,000 MG in sodium chloride 0.9% (plus) 50 ML 100 MG IV (06:30)
[2024-01-09] MEDS: insulin lispro 100 unit/1 mL SUBCUT ×2 (07:39→11:50)
[2024-01-09] MEDS: apixaban 5 mg Tablet 2.5 MG PO (07:39)
[2024-01-09] MEDS: fenofibrate 145 mg Tablet PO (07:40)
[2024-01-09] MEDS: docusate sodium 100 mg Capsule PO (07:40)
[2024-01-09] MEDS: mupirocin oint 22 gm 1 APPLIC NASAL (07:40)
[2024-01-09] MEDS: calcium carb-vit d 600mg/400unit 1 Tablet 1 EACH PO (07:40)
[2024-01-09] MEDS: multivitamin therapeutic Tablet 1 TAB PO (07:40)
[2024-01-09] MEDS: iron polysaccharide complex 150 mg Capsule PO (07:40)
[2024-01-09] MEDS: sennosides-docusate Tablet 2 TAB PO (07:40)
[2024-01-09] MEDS: tamsulosin 0.4 mg Capsule 0.400000000000000022 MG PO (07:40)
--- NOTE | 2024-01-09 07:40 | P.PN_ITS ---
Subjective 2 Subjective: No issues overnight. Pain is under control. Medications: Reviewed: Yes Vitals/I&O/Wt Last Vital Signs Temp 97.6 F 01/09/24 04:57 Pulse 73 01/09/24 04:57 Resp 18 01/09/24 06:28 BP 130/74 01/09/24 04:57 Pulse Ox 97 01/09/24 04:57 O2 Del Method Room Air 01/08/24 19:29 01/08/24 01/09/24 01/09/24 22:59 06:59 14:59 Intake Total 1730 / 3620 390 / 4010 50 / 50 Output Total 1900 / 2625 750 / 3375 Balance -170 / 995 -360 / 635 50 / 50 Weight last 48 hrs Weight 87.685 kg Weight 82.554 kg Weight 82.554 kg Physical Exam 2 Narrative: General no distress Cardiovascular regular rate and rhythm without murmur Lungs clear Extremities no cyanosis clubbing or edema, dressing right lower extremity Urinary Catheter Management: Murillo: Cath Placed During This Visit: yes, but has since been removed by the nurse Reason for Continuing Indwelling Catheter: Perioperative Use in Selected Surgeries Urinary Catheter Date of Insertion: 01/08/24 Urinary Catheter Time of Insertion: 07:30 Date Urinary Catheter Removed: 01/09/24 Time Urinary Catheter Discontinued: 03:05 Data 01/09/24 04:13 01/09/24 04:13 A&P Assessment and plan (1) Arthritis of knee, right: Postoperative day #1 total knee arthroplasty on the right, doing well without complications Pain control per Ortho Eliquis will be used for DVT prophylaxis Laboratory reviewed, no concerns (2) Diabetes mellitus, type II: Consistent carb diet Sliding scale insulin May discharge on his home medication. No changes needed Plan Other medical problems as outlined by past medical history No concerns with discharge from medicine standpoint Attestations 2 Medical Necessity Statement*: As per primary Diagnoses Arthritis of knee, right M17.11 Diabetes mellitus, type II E11.9 Time Spent (min) 14
[2024-01-09] MEDS: chlorhexidine gluconate 0.12% Btl 473 mL 30 ML MUCOUS MEM ×2 (07:41→11:53)
[2024-01-09] MEDS: lactated ringers 1,000 ML 100 ML IV (07:41)
--- NOTE | 2024-01-09 09:41 | PC.CHAP ---
Pastoral Care Encounter/Spiritual Assessment Type of Contact [] Declined accountant cost visit [] Patient/Family/Request visit [] Outpatient visit [] Follow-up visit [] Physician referral [] Code/Alert [x] Routine visit [] Staff referral [] Actively dying [] Patient sleeping [] Family support [] [] Out of room [] Palliative care [] [] Receiving care in room [] Pre-surgical visit [] Trauma [] Long length of stay [] ICU visit [] Other: Relational/Emotional Strength [x] Patient feels connected with others/family/visitors/staff [] Distress [] Loneliness/isolation [] Abandonment Spirituality of Patient [x] Person of Jo-Ann [] Attends Anglican of their Jo-Ann [x] Believes in Prayer [] Reads Bible or Druze materials [] There are Spiritual issues to be addressed Specialist Physician Interventions [x] Prayer [] Active listening [] Non-anxious presence [x] Spiritual/emotional support [] Crisis/trauma care [] Spiritual counseling [] Bereavement support [] Provided bereavement packet [] Provided Bible/devotional materials [] Provided toy/stuffed animal, coloring book to patient or family member [] Provided Communion [] Anointing/[place] [] Salvation [] Completed spiritual assessment [] Other: Impact on Illness or Injury [] Angry [] Fearful [] Anxious [] Often cries [] Exhaustion [] Unable to work [] Unable to attend scientology [] Unable to walk/stand [] Unable to read [] Unable to drive [] Unable to eat/drink [] Unable to sleep [] Unable to be with family [] Patient intubated [] Other: Summary Time spent with patient
--- NOTE | 2024-01-09 09:41 | PC.CHAP ---
Pastoral Care Encounter/Spiritual Assessment Type of Contact [] Declined clinical nursing professor visit [] Patient/Family/Request visit [] Outpatient visit [] Follow-up visit [] Physician referral [] Code/Alert [x] Routine visit [] Staff referral [] Actively dying [] Patient sleeping [] Family support [] [] Out of room [] Palliative care [] [] Receiving care in room [] Pre-surgical visit [] Trauma [] Long length of stay [] ICU visit [] Other: Relational/Emotional Strength [x] Patient feels connected with others/family/visitors/staff [] Distress [] Loneliness/isolation [] Abandonment Spirituality of Patient [x] Person of Jo-Ann [] Attends Episcopal of their Jo-Ann [x] Believes in Prayer [] Reads Bible or Yarsanism materials [] There are Spiritual issues to be addressed Infusion Pharmacist Interventions [x] Prayer [] Active listening [] Non-anxious presence [x] Spiritual/emotional support [] Crisis/trauma care [] Spiritual counseling [] Bereavement support [] Provided bereavement packet [] Provided Bible/devotional materials [] Provided toy/stuffed animal, coloring book to patient or family member [] Provided Communion [] Anointing/[place] [] Salvation [] Completed spiritual assessment [] Other: Impact on Illness or Injury [] Angry [] Fearful [] Anxious [] Often cries [] Exhaustion [] Unable to work [] Unable to attend orthodox [] Unable to walk/stand [] Unable to read [] Unable to drive [] Unable to eat/drink [] Unable to sleep [] Unable to be with family [] Patient intubated [] Other: Summary Time spent with patient 5 min
[2024-01-09 10:43] LABS: Glucose Point of Care 202 mg/dL (70-110)
--- NOTE | 2024-01-11 21:42 | P.DS_ITS ---
Discharge Providers Date of Admission: 01/08/24 09:58 Date of Discharge: January 09, 2024 Attending Provider at Admission: Curry Solitario DO Attending Provider at Discharge: Curry Solitario DO Consults: Dr. Figueroa hospitalist Primary Care Provider: Sandra Cleary DO Diagnoses at Discharge Discharge Diagnosis (1) Arthritis of knee, right: Status: Resolved (2) Diabetes mellitus, type II: Status: Acute Reason for Visit Reason for Visit: M17.11, S83.375A Brief History: Status post right TKA Hospital Course Hospital Course Patient presented to the preoperative holding area with plan for right total knee arthroplasty after patient has been worked up in the outpatient setting for failed conservative treatment of [right] knee degenerative joint disease. Once cleared by anesthesia for surgery patient subsequently was taken back to the operative suite underwent anesthesia per anesthesia department and then subsequently underwent a [right] total knee arthroplasty. Procedure was performed without any complications patient was taken to PACU in stable condition patient recovered well in PACU and then was admitted to the floor postoperatively internal medicine was consulted and on board for medical management and assistance with care. Patient received appropriate PT/OT, p ostoperative antibiotics, postoperative TXA, pain control, postoperative DVT prophylaxis. Elevation and ice. Patient encouraged for knee range of motion allowed weightbearing as tolerated to the operative lower extremity. Dressing was changed as needed, labs were monitored daily. Patient recovered well postoperatively and worked well and progressed well with therapy. It was determined on postoperative day [ 1] the patient was stable for discharge from an orthopedic standpoint and medicine. Patient was comfortable with discharge and plan was discharged home. Patient received appropriate discharge instructions as well as pain medication and DVT prophylaxis postoperatively. Given appropriate instructions for dressing management. Patient will follow-up with Dr. Solitario/orthopedics in the office in 2 weeks. All questions answered. Understand if there is any issues questions or concerns and contact the office. Physical Exam Narrative: Examination of the right knee demonstrates dressings on in place and clean dry and intact. Normal postoperative swelling and tenderness to palpation about the knee compartments are soft compressible calf soft nontender patient is able to wiggle toes plantarflex and dorsiflex ankle sensations intact to light touch distally. Distal pulses palpable. Urinary Catheter Management: [place]: Cath Placed During This Visit: yes, but has since been removed by the nurse Reason for Continuing Indwelling Catheter: Perioperative Use in Selected Surgeries Urinary Catheter Date of Insertion: 01/08/24 Urinary Catheter Time of Insertion: 07:30 Date Urinary Catheter Removed: 01/09/24 Time Urinary Catheter Discontinued: 03:05 Discharge Data Studies Completed and Pending Completed Studies During Hospitalization Category Date Time Status XR knee RT 3V* [id number] Routine Exams 01/08/24 09:52 Completed Radiology Impressions Knee X-Ray 01/08/24 09:52 IMPRESSION: Satisfactory postoperative appearance. Laboratory Results WBC 11.32 10^3/uL (3.29-11.43) 01/09/24 04:13 RBC 4.62 10^6/uL (3.85-5.65) 01/09/24 04:13 Hgb 13.80 g/dL (11.27-16.99) 01/09/24 04:13 Hct 40.7 % (37-53) 01/09/24 04:13 MCV 88.1 fl (82-101) 01/09/24 04:13 MCH 29.9 pg (27-33) 01/09/24 04:13 MCHC 33.9 g/dL (30-55) 01/09/24 04:13 RDW 12.1 % (12.1-15.1) 01/09/24 04:13 Plt Count 172 10^3/cmm (157-399) 01/09/24 04:13 MPV 10.4 fL (7.4-10.4) 01/09/24 04:13 Neut % (Auto) 83.3 % 01/09/24 04:13 Lymph % (Auto) 8.0 % 01/09/24 04:13 [place] % (Auto) 7.4 % 01/09/24 04:13 Eos % (Auto) 0.4 % 01/09/24 04:13 Baso % (Auto) 0.2 % 01/09/24 04:13 Neut # (Auto) 9.43 10^3/uL (1.8-7.7) H 01/09/24 04:13 Lymph # (Auto) 0.9 10^3/uL (0.8-4.8) 01/09/24 04:13 [place] # (Auto) 0.8 10^3/uL (0.2-0.9) 01/09/24 04:13 Eos # (Auto) 0.1 10^3/uL (0.0-0.8) 01/09/24 04:13 Baso # (Auto) 0.0 10^3/uL (0.0-0.1) 01/09/24 04:13 Nucleated RBC % (auto) 0 % 01/09/24 04:13 Nucleated RBCs # 0.0 /100WBC 01/09/24 04:13 Sodium 139 mmol/L (136-145) 01/09/24 04:13 Potassium 3.8 mmol/L (3.5-5.1) 01/09/24 04:13 Chloride 103 mmol/L (98-107) 01/09/24 04:13 Carbon Dioxide 25 mmol/L (22-29) 01/09/24 04:13 Anion Gap 14.8 (5-19) 01/09/24 04:13 BUN 20 mg/dL (8-23) 01/09/24 04:13 Creatinine 1.0 mg/dL (0.7-1.2) 01/09/24 04:13 GFR Calculation 75.7 mL/min (90-130) L 01/09/24 04:13 Glucose 165 mg/dL (65-115) H 01/09/24 04:13 POC Glucose 202 mg/dL (70-110) H 01/09/24 10:34 Calculated Osmolality 294 mOsm/kg (285-295) 01/09/24 04:13 Calcium 8.9 mg/dL (8.5-10.5) 01/09/24 04:13 Blood Type O Positive 01/08/24 06:15 Rho(D) Type Rh positive 01/08/24 06:15 Antibody Screen Negative 01/08/24 06:15 Vitals Last Vital Signs Temp 97.7 F 01/09/24 11:20 Pulse 61 01/09/24 11:20 Resp 18 01/09/24 11:50 BP 128/78 01/09/24 11:20 Pulse Ox 98 01/09/24 11:50 O2 Del Method Room Air 01/09/24 11:20 Discharge Plan Discharge Patient Disposition: Home Condition: Stable Prescriptions: New Eliquis 2.5 mg tablet 2.5 mg PO BID 14 Days Qty: 28 0RF cephalexin 500 mg capsule 500 mg PO Q8H 7 Days Qty: 21 0RF oxycodone 5 mg tablet 5 mg PO Q6H PRN (Reason: pain postop) 7 Days Qty: 28 0RF Continued Centrum Men 8 mg iron- 200 mcg-600 mcg tablet 1 tab PO DAILY Rx Instructions: 1 tab daily Farxiga 10 mg tablet 10 mg PO DAILY simvastatin 20 mg tablet 40 mg PO DAILY fenofibrate nanocrystallized [Tricor] 145 mg tablet 145 mg PO DAILY Januvia 100 mg tablet 100 mg PO DAILY Qty: 90 0RF tamsulosin 0.4 mg capsule 0.4 mg PO DAILY Dose Instruction: TAKE 1 CAPSULE BY MOUTH DAILY Rx Instructions: TAKE 1 CAPSULE BY MOUTH DAILY twice a day; No Action (DME) right economy knee brace See Rx Instructions .Route .MEDSUPPLY Qty: 1 0RF Rx Instructions: As directed methocarbamol 500 mg tablet 500 mg PO TID Qty: 42 0RF Discharge Orders: Discharge Order (Routine); Ordered 01/09/24 Ordered By: Curry Solitario Other Ambulatory Orders: Physical Therapy Eval and Treat Outpatient (Order) Timeframe: 3 Days Location: [facility] PT [facility] Ordered By: Curry Solitario Referrals: Jose L Solitario PA [Physician Exhibit Display Representative] - 01/23/24 9:15 am Discharge Diet: Regular Discharge Activity: Limit activity as instructed and Use walker/crutches as instructed Patient Instructions: Cephalexin (By mouth), Oxycodone/Acetaminophen (By mouth), Ondansetron (By mouth) (Zofran, Zofran ODT, Zuplenz), Apixaban (By mouth) (Eliquis), Total Knee Replacement (GEN), Joint Replacement Stoplight Activity Restrictions/Additional Instructions: Orthopedic discharge instructions: May remove Henok wrap bandage and soft dressing after postoperative day 3 Large ajay dressing should be on in place with vacuum sealed battery pack. Ajay Dressing--Keep dressing on and dry. After 3 days you can remove some of the dressing and shower. disconnect battery pack when showering. Ajay dressing will stay on until follow up appt in 2 weeks. The battery pack for the dressing will at 5-7 days. Battery pack can be removed and discarded once batteries . Patient may weight-bear as tolerate to the operative extremity Utilize crutches as needed Encourage knee range of motion Ice and elevate as needed for pain and swelling Take pain medication as prescribed Take antinausea medication as needed Take antibiotic as prescribed for infection prophylaxis The prescribed Eliquis twice daily for the next 14 days for blood clot prevention May supplement for pain with Tylenol [id number] as needed No baths or soaks Follow-up in the orthopedic office in 2 weeks Contact the office for any questions or concerns Discharge Attestations Time Spent in Discharge Care*: less than 30 min Quality Metrics Clinical Quality Measures [ No reported AMI, CVA or VTE this stay] Coding Level of Care Code Acute Code for [facility] Fwd Diagnoses Arthritis of knee, right M17.11 Diabetes mellitus, type II E11.9 Time Spent (min) 20
== END 2024-01-09 14:14 | disposition home or self-care (01) ==
LOC: MEDSURG 09:58
PROVIDERS: Physician Assistant; Admitting Provider Student in an Organized Health Care Education/Training Program; PCP Family Medicine; Visit Provider Student in an Organized Health Care Education/Training Program
PROC: 8E0Y0CZ Robotic Assisted Procedure of Lower Extremity, Open Approach (ICD-10-PCS; CPT 27447; principal; 2024-01-08 07:00)
DX: M17.11 Unilateral primary osteoarthritis, right knee (principal); E11.9 Type 2 diabetes mellitus without complications; N40.1 Benign prostatic hyperplasia with lower urinary tract symptoms; N13.8 Other obstructive and reflux uropathy; Z85.51 Personal history of malignant neoplasm of bladder
CPT/HCPCS: 20985; 27447; 36415; 36416; 51702; 73562; 80048; 82962; 85025; 86850; 86900; 96372; 97110; 97116; 97161; 97165; C1776; G0378; J0131; J0171; J0690; J1815; J1885; J2250; J2704; J2795; J3370; J7030; J7120

== ENCOUNTER → 2024-01-23 08:55 | Outpatient (BNVA) | payer MEDICAID, SELFPAY | PROVIDERS: PCP Family Medicine; Visit Provider Physician Assistant | DX: Z96.651 Presence of right artificial knee joint (principal) | CPT/HCPCS: 73560; 73565 ==

== ENCOUNTER → 2024-03-05 09:01 | Outpatient (BNVA) | payer MEDICAID, SELFPAY | PROVIDERS: PCP Family Medicine; Visit Provider Student in an Organized Health Care Education/Training Program | DX: Z96.651 Presence of right artificial knee joint (principal) | CPT/HCPCS: 73560; 73565 ==

== ENCOUNTER → 2024-06-11 12:59 | Outpatient (BNVA) | payer MEDICAID, SELFPAY | PROVIDERS: PCP Family Medicine; Visit Provider Student in an Organized Health Care Education/Training Program | DX: Z96.651 Presence of right artificial knee joint (principal) | CPT/HCPCS: 73560; 73565 ==

== ENCOUNTER 2024-09-20 08:09 | Outpatient (CLI) | payer MEDICAID, SELFPAY ==
[2024-09-20 08:44] LABS: Estmated Average Glucose 183
[2024-09-20 08:49] LABS: Creatinine Urine, Random 90 mg/dL (39-259); Microalbum Creatinine Ratio Ur 11 mg/dL (0-20); Microalbumin Random Urine 1 ug/dL (0-20)
[2024-09-20 08:51] LABS: Alanine Aminotransferase 17 U/L (0-41); Albumin Level 4.7 g/dL (3.5-5.2); Alkaline Phosphatase 54 U/L (40-130); Anion Gap 13.2 (5-19); Aspartate Amino Transferase 21 U/L (0-40); Blood Urea Nitrogen 27 mg/dL (8-23); Calcium 9.6 mg/dL (8.5-10.5); Carbon Dioxide 28 mmol/L (22-29); Chloride 100 mmol/L (98-107); Chol HDL Ratio 3.83 mg/dL (1.0-5.00); Cholesterol 157 mg/dL (0-200); Globulin 2.9 g/dL (1.3-4.6); Glomerular Filtration Rate 61.1 mL/min (90-130); Glucose 156 mg/dL (65-115); HDL Cholesterol 41 mg/dL (60-100); LDL Cholesterol Calculated 93 mg/dL (50-129); LDL HDL Ratio 2.27 RATIO (0.00-3.22); Osmolality Calculated 292 mOsm/kg (285-295); Potassium 4.2 mmol/L (3.5-5.1); Sodium 137 mmol/L (136-145); Total Bilirubin 0.8 mg/dL (0.15-1.2); Total Protein 7.6 g/dL (6.6-8.7); Triglycerides 115 mg/dL (0-150)
== END 2024-09-20 08:10 | disposition home or self-care (01) ==
LOC: LAB 08:10
PROVIDERS: PCP Family Medicine; Visit Provider Internal Medicine
DX: E11.9 Type 2 diabetes mellitus without complications (principal); E78.2 Mixed hyperlipidemia
CPT/HCPCS: 36415; 80053; 80061; 82044; 83036

== ENCOUNTER → 2024-10-29 15:47 | Outpatient (BNVA) | payer MEDICAID, SELFPAY | PROVIDERS: PCP Family Medicine; Visit Provider Physician Assistant | DX: Z96.651 Presence of right artificial knee joint (principal); S89.91XA Unspecified injury of right lower leg, initial encounter; W19.XXXA Unspecified fall, initial encounter | CPT/HCPCS: 73560; 73565 ==

== ENCOUNTER → 2024-11-26 08:08 | Outpatient (BNVA) | payer MEDICAID, SELFPAY | PROVIDERS: PCP Family Medicine; Visit Provider Physician Assistant | DX: S89.91XA Unspecified injury of right lower leg, initial encounter (principal); Z96.651 Presence of right artificial knee joint; W19.XXXA Unspecified fall, initial encounter | CPT/HCPCS: 73560; 73565 ==

== ENCOUNTER 2024-12-20 08:03 | Outpatient (CLI) | payer MEDICAID, SELFPAY ==
[2024-12-20 09:45] LABS: Alanine Aminotransferase 28 U/L (0-41); Albumin Level 4.6 g/dL (3.5-5.2); Alkaline Phosphatase 71 U/L (40-130); Anion Gap 17.6 (5-19); Aspartate Amino Transferase 23 U/L (0-40); Blood Urea Nitrogen 28 mg/dL (8-23); Calcium 9.4 mg/dL (8.5-10.5); Carbon Dioxide 25 mmol/L (22-29); Chloride 103 mmol/L (98-107); Chol HDL Ratio 4.15 mg/dL (1.0-5.00); Cholesterol 166 mg/dL (0-200); Glomerular Filtration Rate 61.1 mL/min (90-130); Glucose 249 mg/dL (65-115); HDL Cholesterol 40 mg/dL (60-100); LDL Cholesterol Calculated 84 mg/dL (50-129); Osmolality Calculated 306 mOsm/kg (285-295); Potassium 4.6 mmol/L (3.5-5.1); Sodium 141 mmol/L (136-145); Total Bilirubin 0.4 mg/dL (0.15-1.2); Total Protein 7.6 g/dL (6.6-8.7); Triglycerides 209 mg/dL (0-150)
[2024-12-20 09:49] LABS: Estmated Average Glucose 166; Hemoglobin A1C 7.4 % (4.0-6.0)
[2024-12-20 09:51] LABS: Creatinine Urine, Random 52 mg/dL (39-259); Microalbum Creatinine Ratio Ur 19 mg/dL (0-20); Microalbumin Random Urine 1 ug/dL (0-20)
== END 2024-12-20 08:04 | disposition home or self-care (01) ==
LOC: LAB 08:05
PROVIDERS: PCP Family Medicine; Visit Provider Internal Medicine
DX: E11.9 Type 2 diabetes mellitus without complications (principal); E78.2 Mixed hyperlipidemia
CPT/HCPCS: 36415; 80053; 80061; 82044; 83036

== ENCOUNTER → 2025-01-14 14:02 | Outpatient (BNVA) | payer MEDICAID, SELFPAY | PROVIDERS: PCP Family Medicine; Visit Provider Student in an Organized Health Care Education/Training Program | DX: Z96.651 Presence of right artificial knee joint (principal); Z47.1 Aftercare following joint replacement surgery | CPT/HCPCS: 73560; 73565 ==

== ENCOUNTER 2025-03-26 14:05 | Outpatient (CLI) | payer MEDICAID, SELFPAY ==
[2025-03-26 14:50] LABS: Creatinine Urine, Random 77 mg/dL (39-259); Microalbum Creatinine Ratio Ur 13 mg/dL (0-20)
[2025-03-26 14:51] LABS: Alanine Aminotransferase 33 U/L (0-41); Albumin Level 4.5 g/dL (3.5-5.2); Alkaline Phosphatase 77 U/L (40-130); Aspartate Amino Transferase 21 U/L (0-40); Blood Urea Nitrogen 28 mg/dL (8-23); Calcium 9.4 mg/dL (8.5-10.5); Carbon Dioxide 27 mmol/L (22-29); Chloride 103 mmol/L (98-107); Cholesterol 175 mg/dL (0-200); Globulin 2.8 g/dL (1.3-4.6); Glucose 245 mg/dL (65-115); HDL Cholesterol 33 mg/dL (60-100); Osmolality Calculated 312 mOsm/kg (285-295); Sodium 144 mmol/L (136-145); Total Protein 7.3 g/dL (6.6-8.7); Triglycerides 449 mg/dL (0-150)
[2025-03-26 15:00] LABS: Anion Gap 18.5 (5-19); Potassium 4.5 mmol/L (3.5-5.1)
[2025-03-26 15:36] LABS: Estmated Average Glucose 169; Hemoglobin A1C 7.5 % (4.0-6.0)
== END 2025-03-26 14:06 | disposition home or self-care (01) ==
PROVIDERS: PCP Family Medicine; Visit Provider Internal Medicine
DX: E78.2 Mixed hyperlipidemia (principal); E11.9 Type 2 diabetes mellitus without complications
CPT/HCPCS: 36415; 80053; 80061; 82044; 83036; 83721